=== PATIENT | male | born 1955 ===

== ENCOUNTER 2017-06-20 21:27 | Inpatient (IN) | payer MEDICAID, OTHER ==
[2017-06-20] MEDS ORDERED: Sodium Chloride 0.9% 1,000 ML IV ONE (21:51)
[2017-06-20 22:03] LABS: BASO # 0.2 K/uL (0.0-0.2); BASO % 0.3 % (0.0-2.0); EOS # 0.2 K/uL (0.0-0.7); EOS % 0.2 % (0.0-4.0); HEMATOCRIT 30.7 % (35.0-51.0); LYMPH # 1.1 K/uL (1.0-4.3); LYMPH % 1.2 % (20.0-40.0); MEAN CELL VOLUME 83.9 fL (80.0-94.0); MEAN CORPUSCULAR HEMOGLOBIN 27.3 pg (27.0-31.0); MEAN CORPUSCULAR HGB CONC 32.5 g/dL (33.0-37.0); MEAN PLATELET VOLUME 7.2 fL (7.2-11.7); MONO # 0.5 K/uL (0.0-0.8); MONO % 0.6 % (0.0-10.0); NRBC % 0.1 % (0.0-2.0); PLATELET COUNT 277 K/uL (130-400); RED CELL DISTRIBUTION WIDTH 15.3 % (11.5-14.5)
[2017-06-20 22:05] LABS: CHLORIDE 85 mmol/L (98-107); WHITE BLOOD COUNT 88.8 K/uL (4.8-10.8)
[2017-06-20] MEDS ORDERED: Sodium Chloride 0.9% 1,000 ML ONE (22:05)
[2017-06-20 22:06] LABS: INR 1.2; POTASSIUM 4.9 mmol/L (3.6-5.2)
[2017-06-20 22:07] LABS: SODIUM 120 mmol/L (132-148)
[2017-06-20 22:08] LABS: BILIRUBIN,TOTAL 0.6 mg/dL (0.2-1.3); CARBON DIOXIDE 23 mmol/L (22-30); GFR AFRICAN-AMERICAN > 60
[2017-06-20 22:09] LABS: ALKALINE PHOSPHATASE 202 U/L (38-126); ALT/SGPT 64 U/L (21-72); AST/SGOT 95 U/L (17-59); BLOOD UREA NITROGEN 28 mg/dL (9-20); CALCIUM 9.6 mg/dl (8.6-10.4); GLUCOSE,RANDOM 143 mg/dL (75-110); TOTAL PROTEIN 7.2 g/dL (6.3-8.3)
[2017-06-20 22:31] LABS: TOTAL CELLS COUNTED 100
[2017-06-20 22:33] LABS: METAMYELOCYTE 1 % (0-0); NEUTROPHIL 88 % (50-75)
[2017-06-20] MEDS ORDERED: Iohexol 300 100 ML IJ ONE (22:37)
--- NOTE | 2017-06-20 22:50 | C.PDOC ---
History Of Present Illness 62 year old male with a Hx of widely metastatic left lung CA who presents to the ER with a complaint of chest and body pain. Patient sees Dr. Flip Birmingham at [facility] and had a round of chemotherapy 2 days ago; patient is not sure he got nucagen. Patient's states she has been giving him ms contin and dilaudid 2ml PO at home on a regiment that has not been changed. Patient is not involved with hospice; denies SOB, nausea, or vomiting. Time Seen by Provider: 06/20/17 21:40 Chief Complaint (Nursing): Chest Pain History Per: Patient History/Exam Limitations: no limitations Onset/Duration Of Symptoms: Days Current Symptoms Are (Timing): Still Present Associated Symptoms: denies: Nausea, Dyspnea Modifying Factors: None Exacerbating Factors: None Alleviating Factors: None Recent travel outside of the [place]: No Past Medical History Reviewed: Historical Data, Nursing Documentation, Vital Signs Vital Signs: Last Vital Signs Temp 98.2 F 06/20/17 21:37 Pulse 114 H 06/20/17 21:37 Resp 21 06/20/17 21:37 BP Pulse Ox 95 06/21/17 01:09 - Medical History PMH: No Chronic Diseases Surgical History: No Surg Hx Family History: States: Unknown Family Hx - Social History Hx Alcohol Use: No Hx Substance Use: No - Immunization History Hx Tetanus Toxoid Vaccination: No Hx Influenza Vaccination: No Hx Pneumococcal Vaccination: No Review Of Systems Constitutional: Negative for: Fever, Chills Cardiovascular: Positive for: Chest Pain Respiratory: Negative for: Cough, Shortness of Breath Gastrointestinal: Negative for: Nausea, Vomiting Genitourinary: Negative for: Dysuria, Hematuria Musculoskeletal: Positive for: Other (Body aches) Physical Exam - Physical Exam Appears: Non-toxic, No Acute Distress, Other (Cachetic, bitemporal wasting) Skin: Normal Color, Warm, Dry Head: Atraumatic, Normacephalic Oral Mucosa: Moist Chest: Symmetrical, No Tenderness Cardiovascular: Rhythm Regular, No Friction Rub Respiratory: Other (No breath sounds on left side) Gastrointestinal/Abdominal: Soft, No Tenderness Male Genital: Other (5x5cm firm mass to left inguinal area) Neurological/Psych: Oriented x3, Normal Speech, Normal Cognition ED Course And Treatment - Laboratory Results Result Diagrams: 06/20/17 21:54 06/20/17 21:54 Lab Interpretation: Abnormal (++ leukocytosis, mild anemia, hyponatremia) ECG: Interpreted By Me ECG Rhythm: Sinus Tachycardia ECG Interpretation: Abnormal Rate From EC O2 Sat by Pulse Oximetry: 95 (Room air) Pulse Ox Interpretation: Normal - Radiology CXR: Interpreted by Me CXR Interpretation: Yes: Other (L lung mass, deviated trachea, ? fluid/abscess L chest, small L effusion) - CT Scan/US CT abd/pel Other Rad Studies (CT/US): Read By Radiologist, Radiology Report Reviewed CT/US Interpretation: IMPRESSION: Proximal colonic dilation with distal decompression as discussed above. Transition point in the. sigmoid colon. Extensive heterogeneous soft tissue masses along the right lateral abdomen and pelvis extending. across midline in the inferior anterior pelvis and into the left groin likely representing conglomerate of. partially chronic metastatic lymphadenopathy. Free standing soft tissue neoplasm this would be. possible. Please note no prior studies or reports provided. Metastatic disease to the osseous structures. CT Chest Other Rad Studies (CT/US): Read By Radiologist, Radiology Report Reviewed CT/US Interpretation: IMPRESSION:Extensive soft tissue mass and consolidation in the left hemithorax as described above likely. representing a combination of metastatic and primary neoplasm. Metastatic disease to the osseous structures. Please note no prior studies or reports provided. Progress Note: CT chest/abd/pel, EKG, CXR, and blood culture ordered. Dilaudid and IV fluids administered. Reevaluation Time: 00:55 Reassessment Condition: Improved (pain controlled, resting comfortably.) - Physician Consult Information Outcome Of Conversation: 0030: d/w Medicine Kier Drier- Dr. Jt Ignacio- fl to [facility] Critical Care Time - Critical Care Note Total Time (in mins): 90 Documented critical care: time excludes all time spent performing seperately billable procedures. Medical Decision Making Medical Decision Making: impressive leukocytosis of ? infection vs chemo 2 days ago, vs Neupogen Consolidation in L lung area- Start Zosyn empirically. constip: may be related to colonic stricture/mass/mets. Defer laxatives overnight until d/w Surgery/GI, consider sigmoidoscopy/stent PRN dehydration: continue NS drip Planning for Hospice Care and f/u with Dr. Birmingham @ in [place] when d/c. EXTENSIVE discussion w pt regarding Code Status- tonight's CT results come as a great surprise as CT [address] c/w Stage I/II and further chemo for treatment expected. Pt now advance Stage IV and pt's family not prepared to discuss Code Status- prefer Full Code Overnight. Hospice encouraged. Disposition Doctor Will See Patient In The: Hospital Counseled Patient/Family Regarding: Studies Performed, Diagnosis - Disposition Disposition: HOSPITALIZED Disposition Time: 00:52 Condition: GUARDED Forms: [employer] (Urdu) - Clinical Impression Clinical Impression: Chest discomfort, Pain of metastatic malignancy, Constipation, Dehydration, Pneumonia - Scribe Statement The provider has reviewed the documentation as recorded by the Scribjorge luis Ardon All medical record entries made by the Luzibe were at my direction and personally dictated by me. I have reviewed the chart and agree that the record accurately reflects my personal performance of the history, physical exam, medical decision making, and the department course for this patient. I have also personally directed, reviewed, and agree with the discharge instructions and disposition.
[2017-06-20 23:05] LABS: URINE BILIRUBIN NEGATIVE (NEGATIVE); URINE BLOOD NEGATIVE (NEGATIVE); URINE COLOR Yellow (YELLOW); URINE GLUCOSE (UA) NORMAL (Normal); URINE KETONE NEGATIVE (NEGATIVE); URINE LEUKOCYTE ESTERASE NEG Leu/uL (Negative); URINE PROTEIN NEGATIVE (NEGATIVE); URINE UROBILINOGEN NORMAL mg/dL (0.2-1.0); WBC URINE 1 /hpf (0-5)
[2017-06-21] MEDS ORDERED: Sodium Chloride 0.9% 1,000 ML IV STA (00:31)
[2017-06-21] MEDS ORDERED: Sodium Chloride 0.9% 1,000 ML ONE (00:35)
[2017-06-21] MEDS: Magnesium Citrate Oral SOL (300 ml) PO STA ×2 (01:03→01:35)
[2017-06-21] MEDS ORDERED: Magnesium Citrate Oral SOL (300 ml) ONE (01:04)
--- NOTE | 2017-06-21 01:05 | CT ---
EXAM: CT Abdomen and Pelvis With Intravenous Contrast CLINICAL HISTORY: 62 years old, male; Pain; Abdominal pain; Generalized; Chest pain and chest pressure; Additional info: L lung ca widely mets, ? l groin TECHNIQUE: Axial computed tomography images of the abdomen and pelvis with intravenous contrast. All CT scans at this facility use one or more dose reduction techniques, viz.: automated exposure control; ma/kV adjustment per patient size (including targeted exams where dose is matched to indication; i.e. head); or iterative reconstruction technique. Coronal and sagittal reformatted images were created and reviewed. CONTRAST: 100 mL of omnipaque 300 administered intravenously. COMPARISON: No relevant prior studies available. FINDINGS: Distended gallbladder. The liver, spleen, pancreas are normal. Minimal nonspecific perinephric stranding. The right colon, transverse colon, and proximal descending colon are distended with stool consistent with constipation. The proximal sigmoid colon is distended with air and the distal sigmoid colon is decompressed. The transition occurs in the upper left pelvis on series 6, image 143. There is a small segment of circumferential wall thickening in this region raising the possibility of underlying lesion. Followup colonoscopy may be helpful. The prostate is prominent. Recommend correlation with PSA level. Along the lateral right abdomen and pelvis are numerous rounded soft tissue densities presumably metastatic disease some of which are low attenuation suggesting necrotic center. Lower right pelvis there is a complex soft tissue mass also with areas of low attenuation ending across midline anterior to the urinary bladder and in left groin. Air in the left groin measures 4.5 cm in diameter. A very large conglomerate chronic lymphadenopathy although correlation with patient's history is recommended. There are no prior studies or prior reports provided There are heterogeneous lytic areas within all of the lumbar vertebrae. Heterogeneity in the right acetabulum. Lytic areas in the liliac bones and left inferior pubic rami. IMPRESSION: Proximal colonic dilation with distal decompression as discussed above. Transition point in the sigmoid colon. Extensive heterogeneous soft tissue masses along the right lateral abdomen and pelvis extending across midline in the inferior anterior pelvis and into the left groin likely representing conglomerate of partially chronic metastatic lymphadenopathy. Free standing soft tissue neoplasm this would be possible. Please note no prior studies or reports provided. Metastatic disease to the osseous structures. EXAM: CT Chest With Intravenous Contrast EXAM DATE/TIME: 06/20/2017 9:52 PM CLINICAL HISTORY: 62 years old, male; Pain; Abdominal pain; Generalized; Chest pain and chest pressure; Additional info: L lung ca widely mets, ? l groin TECHNIQUE: Axial computed tomography images of the chest with intravenous contrast. All CT scans at this facility use one or more dose reduction techniques, viz.: automated exposure control; ma/kV adjustment per patient size (including targeted exams where dose is matched to indication; i.e. head); or iterative reconstruction technique. Coronal and sagittal reformatted images were created and reviewed. CONTRAST: 100 mL of omnipaque 300 administered intravenously. COMPARISON: No relevant prior studies available. FINDINGS: There is pleural-based bulky soft tissue along the medial pleura of the left lung and to a lesser degree along the posterior surface. The soft tissue density extends along the pleural covering the left diaphragm. There is consolidation in the left lower lung and lingula. The left hemithorax soft tissue density and consolidation results in mass effect with mediastinal cardiac shift to the right. Small areas of atelectasis in the right lower lung. No aortic aneurysm or dissection. No pulmonary emboli identified although the combination of bolus timing and patient motion thru 2.5 mm slice thickness limit evaluation. There are numerous lytic areas throughout the osseous structures consistent with metastatic disease most notably T1, T5-6, T8. There is decreased height of T1. IMPRESSION: Extensive soft tissue mass and consolidation in the left hemithorax as described above likely representing a combination of metastatic and primary neoplasm. Metastatic disease to the osseous structures. Please note no prior studies or reports provided.
[2017-06-21] MEDS ORDERED: Piperacillin/Tazobact 3.375 gm 100 ML IV STA (01:35)
[2017-06-21] MEDS ORDERED: Piperacillin/Tazobact 3.375 gm 100 ML IVPB ONE (01:41)
[2017-06-21] MEDS: (Novolog) Insulin Aspart, Recombinant 100 u/ml 10 ml vial SC SCH ×4 (07:24→21:15)
[2017-06-21] MEDS ORDERED: Pantoprazole 40 mg EC Tab PO SCH (10:00)
[2017-06-21] MEDS: Enoxaparin 40 mg Syringe SC SCH (10:49)
--- NOTE | 2017-06-21 11:30 | RAD ---
PROCEDURE: CHEST RADIOGRAPH, 1 VIEW HISTORY: SOB COMPARISON: None available. FINDINGS: LUNGS: Diffuse left-sided hazy opacity. Generalized left hemithoracic volume loss. No right-sided infiltrate. PLEURA: Pleural thickening about the lateral left rafy thorax. Probable small left pleural effusion. Probable small left apical pleural thickening. CARDIOVASCULAR: Grossly normal heart size. Evaluation limited due to left-sided volume loss and dextroscoliosis of thoracic spine. OSSEOUS STRUCTURES: No significant abnormalities. VISUALIZED UPPER ABDOMEN: Normal. OTHER FINDINGS: None. IMPRESSION: Hazy left hemithoracic opacity. Possible pleural effusion or pulmonary infiltrate. Mild pleural thickening about lateral left rafy thorax. Probable small left pleural effusion. Left-sided volume loss.
[2017-06-21] MEDS ORDERED: Dextrose 5%/0.9% NS 1,000 ML IV ONE (14:19)
[2017-06-21] MEDS ORDERED: Dextrose 5%/0.9% NS 1,000 ML IV SCH (14:30)
--- NOTE | 2017-06-21 15:59 | CP.PCM.HP ---
Past Patient History - Past Medical History & Family History Past Medical History?: Yes - Past Social History Smoking Status: Unknown If Ever Smoked - PULMONARY Hx Lung Cancer: Yes (left lung CA) - ENDOCRINE/METABOLIC Hx Diabetes Mellitus Type 2: Yes - PSYCHIATRIC Hx Substance Use: No - SURGICAL HISTORY Hx Surgeries: Yes Other/Comment: Left Chest Thoracentesis - ANESTHESIA Hx Anesthesia: Yes Hx Anesthesia Reactions: No Hx Malignant Hyperthermia: No Has any member of the family had a problem w/ anesthesia?: No Meds Allergies/Adverse Reactions: Allergies Allergy/AdvReac Type Severity Reaction Status Date / Time No Known Allergies Allergy Verified 06/20/17 21:43 Physical Exam - Constitutional Appears: Well - Head Exam Head Exam: ATRAUMATIC, NORMAL INSPECTION, NORMOCEPHALIC - Eye Exam Eye Exam: EOMI, Normal appearance, PERRL Pupil Exam: NORMAL ACCOMODATION, PERRL - ENT Exam ENT Exam: Mucous Membranes Moist, Normal Exam - Neck Exam Neck exam: Positive for: Normal Inspection - Respiratory Exam Respiratory Exam: Decreased Breath Sounds - Cardiovascular Exam Cardiovascular Exam: REGULAR RHYTHM, +S1, +S2 - GI/Abdominal Exam GI & Abdominal Exam: Diminished Bowel Sounds, Soft - Rectal Exam Rectal Exam: Deferred Results - Vital Signs Recent Vital Signs: Last Vital Signs Temp 97.6 F 06/21/17 13:27 Pulse 112 H 06/21/17 13:27 Resp 18 06/21/17 13:27 BP 140/82 06/21/17 13:27 Pulse Ox 99 06/21/17 13:27 - Labs Result Diagrams: 06/20/17 21:54 06/20/17 21:54 Labs: Laboratory Results - last 24 hr 06/21/17 06/21/17 07:21 12:11 POC Glucose (mg/dL) 113 H 78
[2017-06-21] MEDS ORDERED: HYDROmorphone 1 mg/ml ISec ONE (16:28)
--- NOTE | 2017-06-21 18:14 | CP.PCM.CON ---
Past Patient History - Past Medical History & Family History Past Medical History?: Yes - Past Social History Smoking Status: Unknown If Ever Smoked - PULMONARY Hx Lung Cancer: Yes (left lung CA) - ENDOCRINE/METABOLIC Hx Diabetes Mellitus Type 2: Yes - PSYCHIATRIC Hx Substance Use: No - SURGICAL HISTORY Hx Surgeries: Yes Other/Comment: Left Chest Thoracentesis - ANESTHESIA Hx Anesthesia: Yes Hx Anesthesia Reactions: No Hx Malignant Hyperthermia: No Has any member of the family had a problem w/ anesthesia?: No Meds Allergies/Adverse Reactions: Allergies Allergy/AdvReac Type Severity Reaction Status Date / Time No Known Allergies Allergy Verified 06/20/17 21:43 - Medications Medications: Current Medications Albuterol/Ipratropium (Duoneb 3 Mg/0.5 Mg (3 Ml) Ud) 3 ml INH RQ6 [facility] Enoxaparin Sodium (Lovenox) 40 mg SC DAILY [facility] Last Admin: 06/21/17 10:49 Dose: Not Given Fentanyl (Duragesic) 1 patch TD Q72H [facility] Last Admin: 06/21/17 15:30 Dose: 1 patch Glyburide (Micronase) 5 mg PO BID [facility] Last Admin: 06/21/17 10:28 Dose: Not Given Hydromorphone HCl (Dilaudid) 3 mg IVP Q4H PRN PRN Reason: Pain, severe (8-10) Last Admin: 06/21/17 16:32 Dose: 3 mg Dextrose/Sodium Chloride (Dextrose 5%/0.9% Ns 1000 Ml) 1,000 mls @ 100 mls/hr IV .Q10H [facility] Last Admin: 06/21/17 14:21 Dose: 100 mls/hr Insulin Aspart (Novolog) 0 unit SC ACHS [facility] PRN Reason: Protocol Last Admin: 06/21/17 16:31 Dose: Not Given Metformin HCl (Glucophage) 500 mg PO BID [facility] Last Admin: 06/21/17 10:28 Dose: Not Given Methylprednisolone (Solu-Medrol) 60 mg IV Q8 [facility] Last Admin: 06/21/17 15:51 Dose: 60 mg Pantoprazole Sodium (Protonix Inj) 40 mg IVP DAILY [facility] Last Admin: 06/21/17 10:48 Dose: 40 mg Results - Vital Signs Recent Vital Signs: Last Vital Signs Temp 98.6 F 06/21/17 17:23 Pulse 113 H 06/21/17 17:23 Resp 22 06/21/17 17:23 BP 157/91 H 06/21/17 17:23 Pulse Ox 97 06/21/17 17:23 - Labs Result Diagrams: 06/20/17 21:54 06/20/17 21:54 Labs: Laboratory Results - last 24 hr 06/21/17 06/21/17 06/21/17 07:21 12:11 16:17 POC Glucose (mg/dL) 113 H 78 169 H
--- NOTE | 2017-06-21 19:34 | CP.PCM.CON ---
History of Present Illness - History of Present Illness History of Present Illness: 62 year old male with a history of stage IV NSCLC (adenocarcinoma) dx in 03/2017 on chemotherapy, admitted with chest pain and fatigue. The patient has been receiving chemotherapy at [facility] and was last treated on 06/18/17. He notes he has been more fatigued and losing more weight. His appetite is poor and has more left sided chest/rib pain. He denies fevers and chills. He does have intermittent shortness of breath. Past medical history: Stage IV NSCLC Past surgical history: None Family history: Denies hematologic and oncologic problems Social history: Denies tobacco, alcohol, and illicit drug use. Allergies: NKA Review of systems: All remaining review of systems including HEENT, cardiovascular, respiratory, gastrointestinal, genitourinary, musculoskeletal, dermatologic, neurologic, and psychiatric are negative unless mentioned in the HPI. Past Patient History - Past Medical History & Family History Past Medical History?: Yes - Past Social History Smoking Status: Former Smoker - PULMONARY Hx Lung Cancer: Yes (left lung CA) - ENDOCRINE/METABOLIC Hx Diabetes Mellitus Type 2: Yes - MUSCULOSKELETAL/RHEUMATOLOGICAL Hx Falls: No - PSYCHIATRIC Hx Substance Use: No - SURGICAL HISTORY Hx Surgeries: Yes Other/Comment: Left Chest Thoracentesis - ANESTHESIA Hx Anesthesia: Yes Hx Anesthesia Reactions: No Hx Malignant Hyperthermia: No Has any member of the family had a problem w/ anesthesia?: No Meds Allergies/Adverse Reactions: Allergies Allergy/AdvReac Type Severity Reaction Status Date / Time No Known Allergies Allergy Verified 06/20/17 21:43 - Medications Medications: Current Medications Albuterol/Ipratropium (Duoneb 3 Mg/0.5 Mg (3 Ml) Ud) 3 ml INH RQ6 [facility] Enoxaparin Sodium (Lovenox) 40 mg SC DAILY [facility] Last Admin: 06/21/17 10:49 Dose: Not Given Fentanyl (Duragesic) 1 patch TD Q72H [facility] Last Admin: 06/21/17 15:30 Dose: 1 patch Glyburide (Micronase) 5 mg PO BID [facility] Last Admin: 06/21/17 18:20 Dose: Not Given Hydromorphone HCl (Dilaudid) 3 mg IVP Q4H PRN PRN Reason: Pain, severe (8-10) Last Admin: 06/21/17 16:32 Dose: 3 mg Dextrose/Sodium Chloride (Dextrose 5%/0.9% Ns 1000 Ml) 1,000 mls @ 100 mls/hr IV .Q10H [facility] Last Admin: 06/21/17 14:21 Dose: 100 mls/hr Insulin Aspart (Novolog) 0 unit SC ACHS [facility] PRN Reason: Protocol Last Admin: 06/21/17 16:31 Dose: Not Given Metformin HCl (Glucophage) 500 mg PO BID [facility] Last Admin: 06/21/17 18:20 Dose: Not Given Methylprednisolone (Solu-Medrol) 60 mg IV Q8 [facility] Last Admin: 06/21/17 15:51 Dose: 60 mg Pantoprazole Sodium (Protonix Inj) 40 mg IVP DAILY [facility] Last Admin: 06/21/17 10:48 Dose: 40 mg Physical Exam - Head Exam Head Exam: ATRAUMATIC - Eye Exam Eye Exam: Normal appearance - ENT Exam ENT Exam: Mucous Membranes Dry - Respiratory Exam Respiratory Exam: Decreased Breath Sounds - Cardiovascular Exam Cardiovascular Exam: +S1, +S2 - GI/Abdominal Exam GI & Abdominal Exam: Normal Bowel Sounds - Extremities Exam Extremities exam: Positive for: normal inspection - Neurological Exam Neurological exam: Oriented x3 - Psychiatric Exam Psychiatric exam: Normal Affect, Normal Mood - Skin Skin Exam: Warm Results - Vital Signs Recent Vital Signs: Last Vital Signs Temp 98.6 F 06/21/17 17:23 Pulse 113 H 06/21/17 17:23 Resp 22 06/21/17 17:23 BP 157/91 H 06/21/17 17:23 Pulse Ox 97 06/21/17 17:23 - Labs Result Diagrams: 06/20/17 21:54 06/20/17 21:54 Labs: Laboratory Results - last 24 hr 06/21/17 06/21/17 06/21/17 07:21 12:11 16:17 POC Glucose (mg/dL) 113 H 78 169 H Assessment & Plan (1) Pain of metastatic malignancy Assessment and Plan: pain medication and bowel regimen Status: Acute (2) Leukocytosis Assessment and Plan: likely secondary to recent Neulasta monitor for fever Status: Acute (3) Anemia Assessment and Plan: chemotherapy and chronic disease Status: Acute (4) Lung cancer Assessment and Plan: lung and bone metastasis outpatient treatment Thank you for this interesting consult. Status: Acute
[2017-06-21] MEDS ORDERED: Albuterol-Ipratrop 3 mg / 0.5 (3 ml) UD INH SCH (20:00)
[2017-06-21] MEDS: Albuterol-Ipratrop 3 mg / 0.5 (3 ml) UD INH SCH (20:30)
[2017-06-21] MEDS: Sodium Chloride 0.9% 1,000 ML IV SCH (21:39)
[2017-06-22] MEDS: Albuterol-Ipratrop 3 mg / 0.5 (3 ml) UD INH SCH ×2 (01:32→07:45)
[2017-06-22] MEDS: Sodium Chloride 0.9% 1,000 ML IV SCH ×2 (07:26→18:07)
[2017-06-22] MEDS: (Novolog) Insulin Aspart, Recombinant 100 u/ml 10 ml vial SC SCH ×4 (08:33→22:08)
[2017-06-22] MEDS: Enoxaparin 40 mg Syringe SC SCH (09:35)
--- NOTE | 2017-06-22 10:52 | CP.PCM.PN ---
Subjective - Date & Time of Evaluation Date of Evaluation: 06/22/17 Time of Evaluation: 08:20 - Subjective Subjective: clinically same Objective - Vital Signs/Intake and Output Vital Signs (last 24 hours): Temp Pulse Resp BP Pulse Ox 98.3 F 112 H 20 141/84 96 06/22/17 08:00 06/22/17 08:00 06/22/17 08:00 06/22/17 08:00 06/22/17 08:00 Intake and Output: 06/22/17 06/22/17 06:59 18:59 Intake Total 2160 Balance 2160 - Medications Medications: Current Medications Enoxaparin Sodium (Lovenox) 40 mg SC DAILY [facility] Last Admin: 06/22/17 09:35 Dose: 40 mg Fentanyl (Duragesic) 1 patch TD Q72H [facility] Last Admin: 06/21/17 15:30 Dose: 1 patch Glyburide (Micronase) 5 mg PO BID [facility] Last Admin: 06/22/17 09:34 Dose: 5 mg Hydromorphone HCl (Dilaudid) 3 mg IVP Q4H PRN PRN Reason: Pain, severe (8-10) Last Admin: 06/22/17 09:30 Dose: 3 mg Sodium Chloride (Sodium Chloride 0.9%) 1,000 mls @ 100 mls/hr IV .Q10H [facility] Last Admin: 06/22/17 07:26 Dose: 100 mls/hr Insulin Aspart (Novolog) 0 unit SC ACHS [facility] PRN Reason: Protocol Last Admin: 06/22/17 08:33 Dose: 2 unit Ipratropium [place] (Atrovent) 0.5 mg IH RQ6 [facility] Metformin HCl (Glucophage) 500 mg PO BID [facility] Last Admin: 06/22/17 09:35 Dose: 500 mg Methylprednisolone (Solu-Medrol) 60 mg IV Q8 [facility] Last Admin: 06/22/17 06:01 Dose: 60 mg Pantoprazole Sodium (Protonix Inj) 40 mg IVP DAILY [facility] Last Admin: 06/22/17 09:35 Dose: 40 mg - Labs Labs: PT 13.4 SECONDS (9.7-12.2) H 06/20/17 21:54 INR 1.2 06/20/17 21:54 APTT 27 SECONDS (21-34) 09/08/17 21:54 - Constitutional Appears: Well - Head Exam Head Exam: ATRAUMATIC, NORMAL INSPECTION, NORMOCEPHALIC - Eye Exam Eye Exam: EOMI, Normal appearance, PERRL Pupil Exam: NORMAL ACCOMODATION, PERRL - ENT Exam ENT Exam: Mucous Membranes Moist, Normal Exam - Neck Exam Neck Exam: Full ROM, Normal Inspection. absent: Lymphadenopathy - Respiratory Exam Respiratory Exam: Decreased Breath Sounds - Cardiovascular Exam Cardiovascular Exam: REGULAR RHYTHM, +S1, +S2 - GI/Abdominal Exam GI & Abdominal Exam: Soft, Diminished Bowel Sounds - Rectal Exam Rectal Exam: Deferred
[2017-06-22] MEDS: Ipratropium 0.02% Inhal Soln (0.5 mg/2.5 ml) UD IH SCH ×2 (14:04→21:04)
--- NOTE | 2017-06-22 15:23 | CP.PCM.PN ---
Subjective - Date & Time of Evaluation Date of Evaluation: 06/22/17 Time of Evaluation: 15:23 Objective - Vital Signs/Intake and Output Vital Signs (last 24 hours): Temp Pulse Resp BP Pulse Ox 98.3 F 112 H 20 141/84 96 06/22/17 08:00 06/22/17 08:00 06/22/17 08:00 06/22/17 08:00 06/22/17 08:00 Intake and Output: 06/22/17 06/22/17 06:59 18:59 Intake Total 2160 1200 Balance 2160 1200 - Medications Medications: Current Medications Enoxaparin Sodium (Lovenox) 40 mg SC DAILY [facility] Last Admin: 06/22/17 09:35 Dose: 40 mg Fentanyl (Duragesic) 1 patch TD Q72H [facility] Last Admin: 06/21/17 15:30 Dose: 1 patch Glyburide (Micronase) 5 mg PO BID [facility] Last Admin: 06/22/17 09:34 Dose: 5 mg Hydromorphone HCl (Dilaudid) 3 mg IVP Q4H PRN PRN Reason: Pain, severe (8-10) Last Admin: 06/22/17 13:59 Dose: 3 mg Sodium Chloride (Sodium Chloride 0.9%) 1,000 mls @ 100 mls/hr IV .Q10H [facility] Last Admin: 06/22/17 07:26 Dose: 100 mls/hr Insulin Aspart (Novolog) 0 unit SC ACHS [facility] PRN Reason: Protocol Last Admin: 06/22/17 12:10 Dose: 4 unit Ipratropium [place] (Atrovent) 0.5 mg IH RQ6 [facility] Last Admin: 06/22/17 14:04 Dose: 0.5 mg Metformin HCl (Glucophage) 500 mg PO BID [facility] Last Admin: 06/22/17 09:35 Dose: 500 mg Methylprednisolone (Solu-Medrol) 60 mg IV Q8 [facility] Last Admin: 06/22/17 13:58 Dose: 60 mg Pantoprazole Sodium (Protonix Inj) 40 mg IVP DAILY [facility] Last Admin: 06/22/17 09:35 Dose: 40 mg - Labs Labs: PT 13.4 SECONDS (9.7-12.2) H 06/20/17 21:54 INR 1.2 06/20/17 21:54 APTT 27 SECONDS (21-34) 06/20/17 21:54
[2017-06-23] MEDS: Ipratropium 0.02% Inhal Soln (0.5 mg/2.5 ml) UD IH SCH ×5 (01:02→20:08)
--- NOTE | 2017-06-23 01:18 | CP.PCM.PN ---
Subjective - Date & Time of Evaluation Date of Evaluation: 06/22/17 Time of Evaluation: 17:00 - Subjective Subjective: Pain improved Objective - Vital Signs/Intake and Output Vital Signs (last 24 hours): Temp Pulse Resp BP Pulse Ox 98.2 F 108 H 20 135/68 97 06/22/17 23:00 06/22/17 23:00 06/22/17 23:00 06/22/17 23:00 06/22/17 23:00 Intake and Output: 06/22/17 06/23/17 18:59 06:59 Intake Total 1200 240 Balance 1200 240 - Medications Medications: Current Medications Enoxaparin Sodium (Lovenox) 40 mg SC DAILY [facility] Last Admin: 06/22/17 09:35 Dose: 40 mg Fentanyl (Duragesic) 1 patch TD Q72H [facility] Last Admin: 06/21/17 15:30 Dose: 1 patch Glyburide (Micronase) 5 mg PO BID [facility] Last Admin: 06/22/17 17:15 Dose: 5 mg Hydromorphone HCl (Dilaudid) 3 mg IVP Q3H PRN PRN Reason: Pain, severe (8-10) Last Admin: 06/22/17 22:01 Dose: 3 mg Sodium Chloride (Sodium Chloride 0.9%) 1,000 mls @ 100 mls/hr IV .Q10H [facility] Last Admin: 06/22/17 18:07 Dose: 100 mls/hr Insulin Aspart (Novolog) 0 unit SC ACHS [facility] PRN Reason: Protocol Last Admin: 06/22/17 22:08 Dose: Not Given Ipratropium [place] (Atrovent) 0.5 mg IH RQ6 [facility] Last Admin: 06/23/17 01:02 Dose: Not Given Metformin HCl (Glucophage) 500 mg PO BID [facility] Last Admin: 06/22/17 17:15 Dose: 500 mg Methylprednisolone (Solu-Medrol) 60 mg IV Q8 [facility] Last Admin: 06/22/17 22:02 Dose: 60 mg Pantoprazole Sodium (Protonix Inj) 40 mg IVP DAILY [facility] Last Admin: 06/22/17 09:35 Dose: 40 mg - Labs Labs: PT 13.4 SECONDS (9.7-12.2) H 06/20/17 21:54 INR 1.2 06/20/17 21:54 APTT 27 SECONDS (21-34) 06/20/17 21:54 - Head Exam Head Exam: ATRAUMATIC - Eye Exam Eye Exam: Normal appearance - ENT Exam ENT Exam: Mucous Membranes Dry - Respiratory Exam Respiratory Exam: Decreased Breath Sounds - Cardiovascular Exam Cardiovascular Exam: +S1, +S2 - GI/Abdominal Exam GI & Abdominal Exam: Normal Bowel Sounds - Extremities Exam Extremities Exam: Normal Inspection Assessment and Plan (1) Pain of metastatic malignancy Assessment & Plan: pain meds and bowel regimen pain improved Status: Acute (2) Leukocytosis Assessment & Plan: likely secondary to recent Neulasta Status: Acute (3) Anemia Assessment & Plan: chronic disease and recent chemotherapy Status: Acute (4) Lung cancer Assessment & Plan: stage IV outpatient treatment Status: Acute
[2017-06-23] MEDS: Sodium Chloride 0.9% 1,000 ML IV SCH ×2 (04:20→14:29)
[2017-06-23 07:19] LABS: BASO # 0.1 K/uL (0.0-0.2); BASO % 0.1 % (0.0-2.0); HEMATOCRIT 26.6 % (35.0-51.0); LYMPH # 0.6 K/uL (1.0-4.3); MEAN CELL VOLUME 84.1 fL (80.0-94.0); MEAN CORPUSCULAR HEMOGLOBIN 27.9 pg (27.0-31.0); MEAN CORPUSCULAR HGB CONC 33.2 g/dL (33.0-37.0); MEAN PLATELET VOLUME 7.6 fL (7.2-11.7); MONO # 0.5 K/uL (0.0-0.8); MONO % 0.8 % (0.0-10.0); RED CELL DISTRIBUTION WIDTH 15.5 % (11.5-14.5)
[2017-06-23 07:29] LABS: PLATELET COUNT 167 K/uL (130-400); WHITE BLOOD COUNT 58.4 K/uL (4.8-10.8)
[2017-06-23 07:48] LABS: CHLORIDE 93 mmol/L (98-107); POTASSIUM 4.2 mmol/L (3.6-5.2); SODIUM 130 mmol/L (132-148)
[2017-06-23 07:50] LABS: ALKALINE PHOSPHATASE 186 U/L (38-126); AST/SGOT 52 U/L (17-59); BILIRUBIN,TOTAL 0.5 mg/dL (0.2-1.3); CARBON DIOXIDE 27 mmol/L (22-30); GFR AFRICAN-AMERICAN > 60; TOTAL PROTEIN 5.7 g/dL (6.3-8.3)
[2017-06-23 07:51] LABS: ALT/SGPT 37 U/L (21-72); BLOOD UREA NITROGEN 14 mg/dL (9-20); CALCIUM 8.6 mg/dl (8.6-10.4); GLUCOSE,RANDOM 186 mg/dL (75-110)
[2017-06-23] MEDS: (Novolog) Insulin Aspart, Recombinant 100 u/ml 10 ml vial SC SCH ×4 (08:17→23:21)
[2017-06-23 08:41] LABS: NEUTROPHIL 98 % (50-75); TOTAL CELLS COUNTED 100
[2017-06-23] MEDS: Enoxaparin 40 mg Syringe SC SCH (09:09)
--- NOTE | 2017-06-23 12:34 | CARD ---
APPROVED REPORT EKG Measurement Heart [id number] <Conclusion> Sinus tachycardia Otherwise normal ECG
--- NOTE | 2017-06-23 13:13 | CP.PCM.CON ---
History of Present Illness - History of Present Illness History of Present Illness: Palliative consult Requested by Allyson Ignacio MD Reason: goals of care discussion Patient is a 62 yo male admitted from home with chest and abdominal pain. Patientmhashly reyes Hx of metastatic Lung CA and is post Chemo Tx last Friday. The CT csan of chest/abd/pelvis was significant for lung mass with mets to bones. Patient and his both aware of results. Patient was medicated at home with MS Contine and Dilaudid PO for cancer pain. On this hospitalization patient was given Fentanyl patch. PMH: Metastatic lung disease, DM, on chemo Tx Soc. Hx: lives at home with and two sons, was working in construction industry and denies smoking fam. Hx: No Hx of cancer. reports patient had genetic testing done and his cancer is not of genetic origin Review of Systems - Constitutional Constitutional: Fatigue, Lethargy, Malaise, Weight Loss, Weakness - EENT Eyes: absent: As Per HPI, Blind Spots, Blurred Vision, Change in Vision, Decreased Night Vision, Diplopia, Discharge, Dry Eye, Exophthalmos, Floaters, Irritation, Itchy Eyes, Loss of Peripheral Vision, Pain, Photophobia, Requires Corrective Lenses, Sees Flashes, Spots in Vision, Tunnel Vision, Other Visual Disturbances, Loss of Vision, Other Ears: absent: As Per HPI, Decreased Hearing, Ear Discharge, Ear Pain, Tinnitus, Abnormal Hearing, Disequilibrium, Dizziness, Other Nose/Mouth/Throat: absent: As Per HPI, Epistaxis, Nasal Congestion, Nasal Discharge, Nasal Obstruction, Nasal Trauma, Nose Pain, Post Nasal Drip, Sinus Pain, Sinus Pressure, Bleeding Gums, Change in Voice, Dental Pain, Dry Mouth, Dysphagia, Halitosis, Hoarsness, Lip Swelling, Mouth Lesions, Mouth Pain, Odynophagia, Sore Throat, Throat Swelling, Tongue Swelling, Facial Pain, Neck Pain, Neck Mass, Other - Cardiovascular Cardiovascular: Chest Pain, Dyspnea, Rapid Heart Rate - Respiratory Respiratory: Cough, Dyspnea, Dyspnea on Exertion, Chest Congestion - Gastrointestinal Gastrointestinal: Bloating, Constipation - Genitourinary Genitourinary: absent: As Per HPI, Change in Urinary Stream, Difficulty Urinating, Dysuria, Flank Pain, Hematuria, Pyuria, Nocturia, Urinary Incontinence, Urinary Frequency, Urinary Hesitance, Urinary Urgency, Voiding Freq/Small Amts, Freq UTI, Hx Renal/Bladder Calculi, Hx /Renal Surgery, Bladder Distension, Other - Reproductive: Male Reproductive:Male: As Per HPI, Prepubesant, Dyspareunia, Genital Lesions, Genital Pruritis, Pelvic Pain, Sexual Dysfunction, Penile Discharge, Genital Odor, Impotence, On ED Medications, Penile Implant, Other - Musculoskeletal Musculoskeletal: absent: As Per HPI, Abnormal Gait, Arthralgias, Atrophy, Back Pain, Deformity, Joint Swelling, Limited Range of Motion, Loss of Height, Muscle Cramps, Muscle Weakness, Myalgias, Neck Pain, Numbness, Radiating Pain into Limb, Stiffness, Tingling, Other - Integumentary Integumentary: absent: As Per HPI, Acne, Alopecia, Bleeding Lesions, Change in Hair, Change in Nails, Change in Pigmentation, Changing Lesions, Dry Skin, Erythema, Furuncle, Hirsutism, Lesions, New Lesions, Non-Healing Lesions, Photosensitivity, Pruritus, Rash, Skin Pain, Skin Ulcer, Sores, Striae, Swelling , Unusual Bruising, Wounds, Jaundice, Other - Neurological Neurological: absent: As Per HPI, Abnormal Gait, Abnormal Hearing, Abnormal Movements, Abnormal Speech, Behavioral Changes, Burning Sensations, Confusion, Convulsions, Disequilibrium, Dizziness, Numbness, Focal Weakness, Frequent Falls , Headaches, Lack of Coordination, Loss of Vision, Memory Loss, Paresthesias, Radicular Pain, Restless Legs, Sensory Deficit, Syncope, Tingling, Tremor, Vertigo, Weakness, Other Visual Disturbances, Other - Psychiatric Psychiatric: absent: As Per HPI, Abnormal Sleep Pattern, Anhedonia, Anxiety, Auditory Hallucinations, Behavioral Changes, Change in Appetite, Change in Libido, Confusion, Depression, Difficulty Concentrating, Hallucinations, Homicidal Ideation, Hopelessness, Irritability, Memory Loss, Mood Swings, Panic Attacks, Paranoia, Suicidal Ideation, Visual Hallucinations, Tactile Hallucinations, Other - Endocrine Endocrine: absent: As Per HPI, Change in Body Appearance, Change in Libido, Cold Intolorance, Deepening of Voice, Excessive Sweating, Fatigue, Flushing, Heat Intolorance, Increase in Ring/Shoe/Hat Size, Palpitations, Polydipsia, Polyphagia, Polyuria, Other - Hematologic/Lymphatic Hematologic: absent: As Per HPI, Easy Bleeding, Easy Bruising, Lymphadenopathy, Other Past Patient History - Past Medical History & Family History Past Medical History?: Yes - Past Social History Smoking Status: Former Smoker - PULMONARY Hx Lung Cancer: Yes (left lung CA) - ENDOCRINE/METABOLIC Hx Diabetes Mellitus Type 2: Yes - MUSCULOSKELETAL/RHEUMATOLOGICAL Hx Falls: No - PSYCHIATRIC Hx Substance Use: No - SURGICAL HISTORY Hx Surgeries: Yes Other/Comment: Left Chest Thoracentesis - ANESTHESIA Hx Anesthesia: Yes Hx Anesthesia Reactions: No Hx Malignant Hyperthermia: No Has any member of the family had a problem w/ anesthesia?: No Meds Allergies/Adverse Reactions: Allergies Allergy/AdvReac Type Severity Reaction Status Date / Time No Known Allergies Allergy Verified 06/20/17 21:43 - Medications Medications: Current Medications Enoxaparin Sodium (Lovenox) 40 mg SC DAILY [facility] Last Admin: 06/23/17 09:09 Dose: 40 mg Fentanyl (Duragesic) 1 patch TD Q72H [facility] Last Admin: 06/21/17 15:30 Dose: 1 patch Glyburide (Micronase) 5 mg PO BID [facility] Last Admin: 06/23/17 09:08 Dose: 5 mg Hydromorphone HCl (Dilaudid) 3 mg IVP Q3H PRN PRN Reason: Pain, severe (8-10) Last Admin: 06/23/17 11:26 Dose: 3 mg Sodium Chloride (Sodium Chloride 0.9%) 1,000 mls @ 100 mls/hr IV .Q10H [facility] Last Admin: 06/23/17 04:20 Dose: 100 mls/hr Insulin Aspart (Novolog) 0 unit SC ACHS [facility] PRN Reason: Protocol Last Admin: 06/23/17 12:28 Dose: 4 unit Ipratropium [place] (Atrovent) 0.5 mg IH RQ6 [facility] Last Admin: 06/23/17 13:05 Dose: 0.5 mg Metformin HCl (Glucophage) 500 mg PO BID [facility] Last Admin: 06/23/17 09:08 Dose: 500 mg Methylprednisolone (Solu-Medrol) 60 mg IV Q8 [facility] Last Admin: 06/23/17 06:04 Dose: 60 mg Pantoprazole Sodium (Protonix Inj) 40 mg IVP DAILY [facility] Last Admin: 06/23/17 09:08 Dose: 40 mg Physical Exam - Constitutional Appears: Chronically Ill - Head Exam Head Exam: ATRAUMATIC, NORMAL INSPECTION, NORMOCEPHALIC - Eye Exam Eye Exam: EOMI, Normal appearance, PERRL Pupil Exam: NORMAL ACCOMODATION, PERRL - ENT Exam ENT Exam: Mucous Membranes Moist, Normal Exam - Neck Exam Neck exam: Positive for: Normal Inspection - Respiratory Exam Respiratory Exam: Decreased Breath Sounds, NORMAL BREATHING PATTERN - Cardiovascular Exam Cardiovascular Exam: Tachycardia, REGULAR RHYTHM - GI/Abdominal Exam GI & Abdominal Exam: Distended, Firm, Hypoactive Bowel Sounds - Rectal Exam Rectal Exam: Deferred - Extremities Exam Extremities exam: Positive for: normal inspection - Back Exam Back exam: NORMAL INSPECTION - Neurological Exam Neurological exam: Alert, Oriented x3 - Psychiatric Exam Psychiatric exam: Flat Affect - Skin Skin Exam: Pallor Results - Vital Signs Recent Vital Signs: Last Vital Signs Temp 97.5 F L 06/23/17 10:12 Pulse 105 H 06/23/17 10:12 Resp 19 06/23/17 10:12 BP 142/90 06/23/17 10:12 Pulse Ox 97 06/23/17 10:12 - Labs Result Diagrams: 06/23/17 07:04 06/23/17 07:04 Labs: Laboratory Results - last 24 hr 06/22/17 06/22/17 06/23/17 16:16 21:03 07:04 WBC 58.4 H* RBC 3.17 L Hgb 8.8 L Hct 26.6 L MCV 84.1 MCH 27.9 MCHC 33.2 RDW 15.5 H Plt Count 167 D MPV 7.6 Neut % (Auto) 98.1 H Lymph % (Auto) 1.0 L Potter % (Auto) 0.8 Eos % (Auto) 0.0 Baso % (Auto) 0.1 Neut # 57.3 H Lymph # 0.6 L Potter # 0.5 Eos # 0.0 Baso # 0.1 Neutrophils % (Manual) 98 H Lymphocytes % (Manual) 1 L Monocytes % (Manual) 1 Platelet Estimate Normal Hypochromasia (manual) Slight Poikilocytosis (manual Slight Anisocytosis (manual) Slight Sodium Potassium Chloride Carbon Dioxide Anion Gap BUN Creatinine Est GFR ( Amer) Est GFR (Non-Af Amer) POC Glucose (mg/dL) 278 H 270 H Random Glucose Calcium Total Bilirubin AST ALT Alkaline Phosphatase Total Protein Albumin Globulin Albumin/Globulin Ratio 06/23/17 06/23/17 06/23/17 07:04 07:31 11:33 WBC RBC Hgb Hct MCV MCH MCHC RDW Plt Count MPV Neut % (Auto) Lymph % (Auto) Potter % (Auto) Eos % (Auto) Baso % (Auto) Neut # Lymph # Potter # Eos # Baso # Neutrophils % (Manual) Lymphocytes % (Manual) Monocytes % (Manual) Platelet Estimate Hypochromasia (manual) Poikilocytosis (manual Anisocytosis (manual) Sodium 130 L Potassium 4.2 Chloride 93 L Carbon Dioxide 27 Anion Gap 14 BUN 14 Creatinine 0.4 L Est GFR ( Amer) > 60 Est GFR (Non-Af Amer) > 60 POC Glucose (mg/dL) 185 H 309 H Random Glucose 186 H Calcium 8.6 Total Bilirubin 0.5 AST 52 ALT 37 Alkaline Phosphatase 186 H Total Protein 5.7 L Albumin 2.8 L D Globulin 2.9 Albumin/Globulin Ratio 1.0 Assessment & Plan - Assessment and Plan (Free Text) Assessment: Palliative consult Code status Full Code, no advance directive on chart I reviewed medical records, all diagnostic studies, examined and interviewed patient at the bed side with his present. Patient is alert, oriented X 3, but still very lethargic falling a sleep often during the discussion. His Francheska answer majority of questions. Physical exam reveals very sick looking man, cachectic, with pale skin. Breath sounds are diminished. There is occasional dry cough. Abdomen is tender to touch , firm and distended. Reports abdominal pain radiating to left flank. Reports no BM X 3 days. Complains of pain around chest area and upper abdomen. On admission WBC 58.4, Hb 8.8 and low Na 130. patient is tachycardic and afebrile. BP WNL. Goals of care discussed with Francheska at bed side. She reports patient was at his norm until March/2017 when he checked him self in for dry cough lasting since September of last year. Patient was working until . Since March, patient underwent multiple Chemo Tx without good response. The notices huge decline in patient's condition. She admits to distress of 9/10 , due to whole situation. She is concerned about her poor prognosis, her kids , her financial situation and is in anticipatory grieving. I reviewed patient's clinical presentation with the and elicited her concerns regarding poor prognosis. She stated that patient and his oncologist agreed to the new Immune Tx treatment once patient gets stronger. At the same time had a questions about Hospice care. I corrected her knowledge about Hospice care vs continuing Chemo tx and offered information on DNR status as something to think about given the lung Cancer diagnosis. is concerned that she would not be able to provide all care her needs at home. SIM discussed . She agreed. Impression * Chronically ill man with widely metastasized cancer * Body image disturbance * General weakness * Cancer pain * Family distress and anticipatory grieving Suggestion * Symptoms management * Would consider transfer to [facility] * Bowel regimen * Greek Professor visits for spiritual support Goals of care will need to be revised based on patient's progress/ decline. Thank you for allowing me to assist you in care of this patient.
--- NOTE | 2017-06-23 17:51 | CP.PCM.PN ---
Subjective - Date & Time of Evaluation Date of Evaluation: 06/23/17 Time of Evaluation: 17:51 Objective - Vital Signs/Intake and Output Vital Signs (last 24 hours): Temp Pulse Resp BP Pulse Ox 98.0 F 111 H 20 146/89 94 L 06/23/17 15:10 06/23/17 15:10 06/23/17 15:10 06/23/17 15:10 06/23/17 15:10 Intake and Output: 06/23/17 06/23/17 06:59 18:59 Intake Total 1040 1200 Output Total 1 Balance 1040 1199 - Medications Medications: Current Medications Enoxaparin Sodium (Lovenox) 40 mg SC DAILY [facility] Last Admin: 06/23/17 09:09 Dose: 40 mg Fentanyl (Duragesic) 1 patch TD Q72H [facility] Last Admin: 06/21/17 15:30 Dose: 1 patch Glyburide (Micronase) 5 mg PO BID [facility] Last Admin: 06/23/17 17:33 Dose: 5 mg Hydromorphone HCl (Dilaudid) 3 mg IVP Q3H PRN PRN Reason: Pain, severe (8-10) Last Admin: 06/23/17 17:28 Dose: 3 mg Sodium Chloride (Sodium Chloride 0.9%) 1,000 mls @ 100 mls/hr IV .Q10H [facility] Last Admin: 06/23/17 14:29 Dose: 100 mls/hr Insulin Aspart (Novolog) 0 unit SC ACHS [facility] PRN Reason: Protocol Last Admin: 06/23/17 17:35 Dose: 1 unit Ipratropium [place] (Atrovent) 0.5 mg IH RQ6 [facility] Last Admin: 06/23/17 13:05 Dose: 0.5 mg Metformin HCl (Glucophage) 500 mg PO BID [facility] Last Admin: 06/23/17 17:34 Dose: 500 mg Methylprednisolone (Solu-Medrol) 60 mg IV Q8 [facility] Last Admin: 06/23/17 14:28 Dose: 60 mg Pantoprazole Sodium (Protonix Inj) 40 mg IVP DAILY [facility] Last Admin: 06/23/17 09:08 Dose: 40 mg - Labs Labs: 06/23/17 07:04 06/23/17 07:04 PT 13.4 SECONDS (9.7-12.2) H 06/20/17 21:54 INR 1.2 06/20/17 21:54 APTT 27 SECONDS (21-34) 06/20/17 21:54
[2017-06-23] MEDS ORDERED: HYDROmorphone 1 mg/ml ISec IVP STA (19:38)
--- NOTE | 2017-06-23 21:27 | CP.PCM.PN ---
Subjective - Date & Time of Evaluation Date of Evaluation: 06/23/17 Time of Evaluation: 09:20 - Subjective Subjective: clinically same Objective - Vital Signs/Intake and Output Vital Signs (last 24 hours): Temp Pulse Resp BP Pulse Ox 98.0 F 111 H 20 146/89 94 L 06/23/17 15:10 06/23/17 15:10 06/23/17 15:10 06/23/17 15:10 06/23/17 15:10 Intake and Output: 06/23/17 06/24/17 18:59 06:59 Intake Total 1200 Output Total 1 Balance 1199 - Medications Medications: Current Medications Enoxaparin Sodium (Lovenox) 40 mg SC DAILY [facility] Last Admin: 06/23/17 09:09 Dose: 40 mg Fentanyl (Duragesic) 1 patch TD Q72H [facility] Last Admin: 06/21/17 15:30 Dose: 1 patch Glyburide (Micronase) 5 mg PO BID [facility] Last Admin: 06/23/17 17:33 Dose: 5 mg Hydromorphone HCl (Dilaudid) 3 mg IVP Q3H PRN PRN Reason: Pain, severe (8-10) Last Admin: 06/23/17 17:28 Dose: 3 mg Sodium Chloride (Sodium Chloride 0.9%) 1,000 mls @ 100 mls/hr IV .Q10H [facility] Last Admin: 06/23/17 14:29 Dose: 100 mls/hr Insulin Aspart (Novolog) 0 unit SC ACHS [facility] PRN Reason: Protocol Last Admin: 06/23/17 17:35 Dose: 1 unit Ipratropium [place] (Atrovent) 0.5 mg IH RQ6 [facility] Last Admin: 06/23/17 20:08 Dose: 0.5 mg Metformin HCl (Glucophage) 500 mg PO BID [facility] Last Admin: 06/23/17 17:34 Dose: 500 mg Methylprednisolone (Solu-Medrol) 60 mg IV Q8 [facility] Last Admin: 06/23/17 14:28 Dose: 60 mg Pantoprazole Sodium (Protonix Inj) 40 mg IVP DAILY [facility] Last Admin: 06/23/17 09:08 Dose: 40 mg - Labs Labs: 06/23/17 07:04 06/23/17 07:04 PT 13.4 SECONDS (9.7-12.2) H 06/20/17 21:54 INR 1.2 06/20/17 21:54 APTT 27 SECONDS (21-34) 06/20/17 21:54 - Constitutional Appears: Well - Head Exam Head Exam: ATRAUMATIC, NORMAL INSPECTION, NORMOCEPHALIC - Eye Exam Eye Exam: EOMI, Normal appearance, PERRL Pupil Exam: NORMAL ACCOMODATION, PERRL - ENT Exam ENT Exam: Mucous Membranes Moist, Normal Exam - Neck Exam Neck Exam: Full ROM, Normal Inspection. absent: Lymphadenopathy - Respiratory Exam Respiratory Exam: Decreased Breath Sounds - Cardiovascular Exam Cardiovascular Exam: REGULAR RHYTHM, +S1, +S2 - GI/Abdominal Exam GI & Abdominal Exam: Soft, Diminished Bowel Sounds - Rectal Exam Rectal Exam: Deferred Assessment and Plan - Assessment and Plan (Free Text) Plan: I discussed with the family WBC count went down to 5 8 from 88 follow-up with pulmonary Follow-up with Dr. Frost Continue same Begin a lot of pain medications dionna same poor prognosis
[2017-06-24] MEDS: Sodium Chloride 0.9% 1,000 ML IV SCH ×3 (00:20→19:30)
[2017-06-24] MEDS: Ipratropium 0.02% Inhal Soln (0.5 mg/2.5 ml) UD IH SCH ×4 (01:19→21:24)
[2017-06-24] MEDS: (Novolog) Insulin Aspart, Recombinant 100 u/ml 10 ml vial SC SCH ×4 (08:16→21:34)
[2017-06-24] MEDS: Enoxaparin 40 mg Syringe SC SCH (09:18)
--- NOTE | 2017-06-24 16:36 | CP.PCM.PN ---
Subjective - Date & Time of Evaluation Date of Evaluation: 06/24/17 Time of Evaluation: 16:35 Objective - Vital Signs/Intake and Output Vital Signs (last 24 hours): Temp Pulse Resp BP Pulse Ox 97.5 F L 106 H 20 162/98 H 94 L 06/24/17 07:36 06/24/17 14:43 06/24/17 07:36 06/24/17 07:36 06/24/17 14:43 Intake and Output: 06/24/17 06/24/17 06:59 18:59 Intake Total 1999 1300 Balance 1999 1300 - Medications Medications: Current Medications Enoxaparin Sodium (Lovenox) 40 mg SC DAILY [facility] Last Admin: 06/24/17 09:18 Dose: 40 mg Fentanyl (Duragesic) 1 patch TD Q72H [facility] Last Admin: 06/24/17 14:50 Dose: 1 patch Glyburide (Micronase) 5 mg PO BID [facility] Last Admin: 06/24/17 09:19 Dose: 5 mg Hydromorphone HCl (Dilaudid) 3 mg IVP Q3H PRN PRN Reason: Pain, severe (8-10) Last Admin: 06/24/17 13:36 Dose: 3 mg Sodium Chloride (Sodium Chloride 0.9%) 1,000 mls @ 100 mls/hr IV .Q10H [facility] Last Admin: 06/24/17 10:29 Dose: 100 mls/hr Insulin Aspart (Novolog) 0 unit SC ACHS [facility] PRN Reason: Protocol Last Admin: 06/24/17 11:45 Dose: 3 unit Ipratropium [place] (Atrovent) 0.5 mg IH RQ6 [facility] Last Admin: 06/24/17 13:31 Dose: 0.5 mg Metformin HCl (Glucophage) 500 mg PO BID [facility] Last Admin: 06/24/17 09:19 Dose: 500 mg Methylprednisolone (Solu-Medrol) 60 mg IV Q8 [facility] Last Admin: 06/24/17 14:54 Dose: 60 mg Pantoprazole Sodium (Protonix Inj) 40 mg IVP DAILY [facility] Last Admin: 06/24/17 09:17 Dose: 40 mg - Labs Labs: 06/23/17 07:04 06/23/17 07:04 PT 13.4 SECONDS (9.7-12.2) H 09/08/17 21:54 INR 1.2 06/20/17 21:54 APTT 27 SECONDS (21-34) 06/20/17 21:54
--- NOTE | 2017-06-24 20:34 | CP.PCM.PN ---
Subjective - Date & Time of Evaluation Date of Evaluation: 06/24/17 Time of Evaluation: 08:40 - Subjective Subjective: clinically same Objective - Vital Signs/Intake and Output Vital Signs (last 24 hours): Temp Pulse Resp BP Pulse Ox 98.1 F 124 H 16 156/89 H 95 06/24/17 16:00 06/24/17 16:00 06/24/17 16:00 06/24/17 16:00 06/24/17 16:00 Intake and Output: 06/24/17 06/25/17 18:59 06:59 Intake Total 1300 Balance 1300 - Medications Medications: Current Medications Enoxaparin Sodium (Lovenox) 40 mg SC DAILY [facility] Last Admin: 06/24/17 09:18 Dose: 40 mg Fentanyl (Duragesic) 1 patch TD Q72H [facility] Last Admin: 06/24/17 14:50 Dose: 1 patch Glyburide (Micronase) 5 mg PO BID [facility] Last Admin: 06/24/17 17:00 Dose: 5 mg Hydromorphone HCl (Dilaudid) 3 mg IVP Q3H PRN PRN Reason: Pain, severe (8-10) Last Admin: 06/24/17 16:58 Dose: 3 mg Sodium Chloride (Sodium Chloride 0.9%) 1,000 mls @ 100 mls/hr IV .Q10H [facility] Last Admin: 06/24/17 10:29 Dose: 100 mls/hr Insulin Aspart (Novolog) 0 unit SC ACHS [facility] PRN Reason: Protocol Last Admin: 06/24/17 17:00 Dose: 1 unit Ipratropium [place] (Atrovent) 0.5 mg IH RQ6 [facility] Last Admin: 06/24/17 13:31 Dose: 0.5 mg Metformin HCl (Glucophage) 500 mg PO BID [facility] Last Admin: 06/24/17 17:00 Dose: 500 mg Methylprednisolone (Solu-Medrol) 60 mg IV Q8 [facility] Last Admin: 06/24/17 14:54 Dose: 60 mg Pantoprazole Sodium (Protonix Inj) 40 mg IVP DAILY [facility] Last Admin: 06/24/17 09:17 Dose: 40 mg - Labs Labs: 06/23/17 07:04 06/23/17 07:04 PT 13.4 SECONDS (9.7-12.2) H 06/20/17 21:54 INR 1.2 06/20/17 21:54 APTT 27 SECONDS (21-34) 06/20/17 21:54 - Constitutional Appears: Well - Head Exam Head Exam: ATRAUMATIC, NORMAL INSPECTION, NORMOCEPHALIC - Eye Exam Eye Exam: EOMI, Normal appearance, PERRL Pupil Exam: NORMAL ACCOMODATION, PERRL - ENT Exam ENT Exam: Mucous Membranes Moist, Normal Exam - Neck Exam Neck Exam: Full ROM, Normal Inspection. absent: Lymphadenopathy - Respiratory Exam Respiratory Exam: Decreased Breath Sounds - Cardiovascular Exam Cardiovascular Exam: REGULAR RHYTHM, +S1, +S2 - GI/Abdominal Exam GI & Abdominal Exam: Soft, Diminished Bowel Sounds - Rectal Exam Rectal Exam: Deferred
[2017-06-25] MEDS: Ipratropium 0.02% Inhal Soln (0.5 mg/2.5 ml) UD IH SCH ×4 (03:52→19:24)
[2017-06-25] MEDS: (Novolog) Insulin Aspart, Recombinant 100 u/ml 10 ml vial SC SCH ×4 (08:00→21:38)
[2017-06-25] MEDS: Enoxaparin 40 mg Syringe SC SCH (09:04)
--- NOTE | 2017-06-25 10:30 | CP.PCM.PN ---
Subjective - Date & Time of Evaluation Date of Evaluation: 06/23/17 Time of Evaluation: 18:00 - Subjective Subjective: Has some pain but controlled with pain meds. Objective - Vital Signs/Intake and Output Vital Signs (last 24 hours): Temp Pulse Resp BP Pulse Ox 97.8 F 124 H 21 158/98 H 95 06/25/17 07:27 06/25/17 07:27 06/25/17 07:27 06/25/17 07:27 06/25/17 07:27 Intake and Output: 06/25/17 06/25/17 06:59 18:59 Intake Total 1160 Balance 1160 - Medications Medications: Current Medications Enoxaparin Sodium (Lovenox) 40 mg SC DAILY [facility] Last Admin: 06/25/17 09:04 Dose: 40 mg Fentanyl (Duragesic) 1 patch TD Q72H [facility] Last Admin: 06/24/17 14:50 Dose: 1 patch Glyburide (Micronase) 5 mg PO BID [facility] Last Admin: 06/25/17 09:04 Dose: 5 mg Hydromorphone HCl (Dilaudid) 3 mg IVP Q3H PRN PRN Reason: Pain, severe (8-10) Last Admin: 06/25/17 06:25 Dose: 3 mg Insulin Aspart (Novolog) 0 unit SC ACHS [facility] PRN Reason: Protocol Last Admin: 06/25/17 08:00 Dose: 2 unit Ipratropium [place] (Atrovent) 0.5 mg IH RQ6 [facility] Last Admin: 06/25/17 08:01 Dose: 0.5 mg Metformin HCl (Glucophage) 500 mg PO BID [facility] Last Admin: 06/25/17 09:04 Dose: 500 mg Methylprednisolone (Solu-Medrol) 60 mg IV Q8 [facility] Last Admin: 06/25/17 06:15 Dose: 60 mg Pantoprazole Sodium (Protonix Inj) 40 mg IVP DAILY [facility] Last Admin: 06/25/17 09:04 Dose: 40 mg - Labs Labs: 06/23/17 07:04 06/23/17 07:04 PT 13.4 SECONDS (9.7-12.2) H 06/20/17 21:54 INR 1.2 06/20/17 21:54 APTT 27 SECONDS (21-34) 06/20/17 21:54 - Head Exam Head Exam: ATRAUMATIC - Eye Exam Eye Exam: Normal appearance - ENT Exam ENT Exam: Mucous Membranes Dry - Respiratory Exam Respiratory Exam: NORMAL BREATHING PATTERN - Cardiovascular Exam Cardiovascular Exam: +S1, +S2 - GI/Abdominal Exam GI & Abdominal Exam: Normal Bowel Sounds - Extremities Exam Extremities Exam: Normal Inspection Assessment and Plan (1) Pain of metastatic malignancy Assessment & Plan: pain meds with bowel regimen Status: Acute (2) Leukocytosis Assessment & Plan: secondary to recent Neulasta Status: Acute (3) Anemia Assessment & Plan: chronic disease and chemotherapy Status: Acute (4) Lung cancer Assessment & Plan: stage IV on chemotherapy with likely progression pt wants to try immunotherapy as outpatient. Status: Acute
--- NOTE | 2017-06-25 12:05 | CP.PCM.PN ---
Subjective - Date & Time of Evaluation Date of Evaluation: 06/24/17 Time of Evaluation: 14:00 - Subjective Subjective: Has pain Objective - Vital Signs/Intake and Output Vital Signs (last 24 hours): Temp Pulse Resp BP Pulse Ox 97.8 F 124 H 21 158/98 H 95 06/25/17 07:27 06/25/17 07:27 06/25/17 07:27 06/25/17 07:27 06/25/17 07:27 Intake and Output: 06/25/17 06/25/17 06:59 18:59 Intake Total 1160 Balance 1160 - Medications Medications: Current Medications Enoxaparin Sodium (Lovenox) 40 mg SC DAILY [facility] Last Admin: 06/25/17 09:04 Dose: 40 mg Fentanyl (Duragesic) 1 patch TD Q72H [facility] Last Admin: 06/24/17 14:50 Dose: 1 patch Glyburide (Micronase) 5 mg PO BID [facility] Last Admin: 06/25/17 09:04 Dose: 5 mg Hydromorphone HCl (Dilaudid) 3 mg IVP Q3H PRN PRN Reason: Pain, severe (8-10) Last Admin: 06/25/17 09:30 Dose: 3 mg Insulin Aspart (Novolog) 0 unit SC ACHS [facility] PRN Reason: Protocol Last Admin: 06/25/17 08:00 Dose: 2 unit Ipratropium [place] (Atrovent) 0.5 mg IH RQ6 [facility] Last Admin: 06/25/17 08:01 Dose: 0.5 mg Metformin HCl (Glucophage) 500 mg PO BID [facility] Last Admin: 06/25/17 09:04 Dose: 500 mg Methylprednisolone (Solu-Medrol) 60 mg IV Q8 [facility] Last Admin: 06/25/17 06:15 Dose: 60 mg Pantoprazole Sodium (Protonix Inj) 40 mg IVP DAILY [facility] Last Admin: 06/25/17 09:04 Dose: 40 mg - Labs Labs: 06/23/17 07:04 06/23/17 07:04 PT 13.4 SECONDS (9.7-12.2) H 06/20/17 21:54 INR 1.2 06/20/17 21:54 APTT 27 SECONDS (21-34) 06/20/17 21:54 - Head Exam Head Exam: ATRAUMATIC - Eye Exam Eye Exam: Normal appearance - ENT Exam ENT Exam: Mucous Membranes Dry - Respiratory Exam Respiratory Exam: Decreased Breath Sounds - Cardiovascular Exam Cardiovascular Exam: +S1, +S2 - GI/Abdominal Exam GI & Abdominal Exam: Normal Bowel Sounds - Extremities Exam Extremities Exam: Normal Inspection Assessment and Plan (1) Pain of metastatic malignancy Assessment & Plan: narcotic pain meds with bowel regimen Status: Acute (2) Leukocytosis Assessment & Plan: secondary to recent Neulasta Status: Acute (3) Anemia Assessment & Plan: chronic disease and recent chemotherapy Status: Acute (4) Lung cancer Assessment & Plan: s/p 3 cycles of chemotherapy with progression for outpatient immunotherapy Status: Acute
--- NOTE | 2017-06-25 12:06 | CP.PCM.PN ---
Subjective - Date & Time of Evaluation Date of Evaluation: 06/24/17 Time of Evaluation: 19:00 - Subjective Subjective: Has chest pain Objective - Vital Signs/Intake and Output Vital Signs (last 24 hours): Temp Pulse Resp BP Pulse Ox 97.8 F 124 H 21 158/98 H 95 06/25/17 07:27 06/25/17 07:27 06/25/17 07:27 06/25/17 07:27 06/25/17 07:27 Intake and Output: 06/25/17 06/25/17 06:59 18:59 Intake Total 1160 Balance 1160 - Medications Medications: Current Medications Enoxaparin Sodium (Lovenox) 40 mg SC DAILY [facility] Last Admin: 06/25/17 09:04 Dose: 40 mg Fentanyl (Duragesic) 1 patch TD Q72H [facility] Last Admin: 06/24/17 14:50 Dose: 1 patch Glyburide (Micronase) 5 mg PO BID [facility] Last Admin: 06/25/17 09:04 Dose: 5 mg Hydromorphone HCl (Dilaudid) 3 mg IVP Q3H PRN PRN Reason: Pain, severe (8-10) Last Admin: 06/25/17 09:30 Dose: 3 mg Insulin Aspart (Novolog) 0 unit SC ACHS [facility] PRN Reason: Protocol Last Admin: 06/25/17 08:00 Dose: 2 unit Ipratropium [place] (Atrovent) 0.5 mg IH RQ6 [facility] Last Admin: 06/25/17 08:01 Dose: 0.5 mg Metformin HCl (Glucophage) 500 mg PO BID [facility] Last Admin: 06/25/17 09:04 Dose: 500 mg Methylprednisolone (Solu-Medrol) 60 mg IV Q8 [facility] Last Admin: 06/25/17 06:15 Dose: 60 mg Pantoprazole Sodium (Protonix Inj) 40 mg IVP DAILY [facility] Last Admin: 06/25/17 09:04 Dose: 40 mg - Labs Labs: 06/23/17 07:04 06/23/17 07:04 PT 13.4 SECONDS (9.7-12.2) H 06/20/17 21:54 INR 1.2 06/20/17 21:54 APTT 27 SECONDS (21-34) 06/20/17 21:54 - Head Exam Head Exam: ATRAUMATIC - Eye Exam Eye Exam: Normal appearance - ENT Exam ENT Exam: Mucous Membranes Dry - Respiratory Exam Respiratory Exam: Decreased Breath Sounds - Cardiovascular Exam Cardiovascular Exam: +S1, +S2 - GI/Abdominal Exam GI & Abdominal Exam: Normal Bowel Sounds Assessment and Plan (1) Pain of metastatic malignancy Assessment & Plan: narcotic pain meds and bowel regimen Status: Acute (2) Leukocytosis Assessment & Plan: secondary to recent Neulasta Status: Acute (3) Anemia Assessment & Plan: chronic disease and recent chemotherapy Status: Acute (4) Lung cancer Assessment & Plan: outpatient treatment Status: Acute
--- NOTE | 2017-06-25 18:49 | CP.PCM.PN ---
Subjective - Date & Time of Evaluation Date of Evaluation: 06/25/17 Time of Evaluation: 08:20 - Subjective Subjective: clinically same Objective - Vital Signs/Intake and Output Vital Signs (last 24 hours): Temp Pulse Resp BP Pulse Ox 97.8 F 124 H 21 158/98 H 93 L 06/25/17 07:27 06/25/17 15:15 06/25/17 07:27 06/25/17 15:15 06/25/17 15:15 Intake and Output: 06/25/17 06/25/17 06:59 18:59 Intake Total 1160 1200 Balance 1160 1200 - Medications Medications: Current Medications Enoxaparin Sodium (Lovenox) 40 mg SC DAILY [facility] Last Admin: 06/25/17 09:04 Dose: 40 mg Glyburide (Micronase) 5 mg PO BID [facility] Last Admin: 06/25/17 18:19 Dose: 5 mg Hydromorphone HCl (Dilaudid) 4 mg IVP Q3H PRN PRN Reason: Pain, severe (8-10) Last Admin: 06/25/17 15:07 Dose: 4 mg Insulin Aspart (Novolog) 0 unit SC ACHS [facility] PRN Reason: Protocol Last Admin: 06/25/17 18:19 Dose: 2 unit Ipratropium [place] (Atrovent) 0.5 mg IH RQ6 [facility] Last Admin: 06/25/17 13:41 Dose: 0.5 mg Metformin HCl (Glucophage) 500 mg PO BID [facility] Last Admin: 06/25/17 18:19 Dose: 500 mg Methylprednisolone (Solu-Medrol) 60 mg IV Q8 [facility] Last Admin: 06/25/17 13:21 Dose: 60 mg Pantoprazole Sodium (Protonix Inj) 40 mg IVP DAILY [facility] Last Admin: 06/25/17 09:04 Dose: 40 mg - Labs Labs: 06/23/17 07:04 06/23/17 07:04 PT 13.4 SECONDS (9.7-12.2) H 06/20/17 21:54 INR 1.2 06/20/17 21:54 APTT 27 SECONDS (21-34) 06/20/17 21:54 - Constitutional Appears: Well - Head Exam Head Exam: ATRAUMATIC, NORMAL INSPECTION, NORMOCEPHALIC - Eye Exam Eye Exam: EOMI, Normal appearance, PERRL Pupil Exam: NORMAL ACCOMODATION, PERRL - ENT Exam ENT Exam: Mucous Membranes Moist, Normal Exam - Neck Exam Neck Exam: Full ROM, Normal Inspection. absent: Lymphadenopathy - Respiratory Exam Respiratory Exam: Decreased Breath Sounds - Cardiovascular Exam Cardiovascular Exam: REGULAR RHYTHM, +S1, +S2 - GI/Abdominal Exam GI & Abdominal Exam: Soft, Diminished Bowel Sounds - Rectal Exam Rectal Exam: Deferred
--- NOTE | 2017-06-25 19:42 | CP.PCM.PN ---
Subjective - Date & Time of Evaluation Date of Evaluation: 06/25/17 Objective - Vital Signs/Intake and Output Vital Signs (last 24 hours): Temp Pulse Resp BP Pulse Ox 97.8 F 124 H 21 158/98 H 93 L 06/25/17 07:27 06/25/17 15:15 06/25/17 07:27 06/25/17 15:15 06/25/17 15:15 Intake and Output: 06/25/17 06/26/17 18:59 06:59 Intake Total 1200 Balance 1200 - Medications Medications: Current Medications Enoxaparin Sodium (Lovenox) 40 mg SC DAILY [facility] Last Admin: 06/25/17 09:04 Dose: 40 mg Glyburide (Micronase) 5 mg PO BID [facility] Last Admin: 06/25/17 18:19 Dose: 5 mg Hydromorphone HCl (Dilaudid) 4 mg IVP Q3H PRN PRN Reason: Pain, severe (8-10) Last Admin: 06/25/17 15:07 Dose: 4 mg Insulin Aspart (Novolog) 0 unit SC ACHS [facility] PRN Reason: Protocol Last Admin: 06/25/17 18:19 Dose: 2 unit Ipratropium [place] (Atrovent) 0.5 mg IH RQ6 [facility] Last Admin: 06/25/17 19:24 Dose: 0.5 mg Metformin HCl (Glucophage) 500 mg PO BID [facility] Last Admin: 06/25/17 18:19 Dose: 500 mg Methylprednisolone (Solu-Medrol) 60 mg IV Q8 [facility] Last Admin: 06/25/17 13:21 Dose: 60 mg Pantoprazole Sodium (Protonix Inj) 40 mg IVP DAILY [facility] Last Admin: 06/25/17 09:04 Dose: 40 mg - Labs Labs: 06/23/17 07:04 06/23/17 07:04 PT 13.4 SECONDS (9.7-12.2) H 06/20/17 21:54 INR 1.2 06/20/17 21:54 APTT 27 SECONDS (21-34) 06/20/17 21:54
[2017-06-26] MEDS: Ipratropium 0.02% Inhal Soln (0.5 mg/2.5 ml) UD IH SCH ×4 (01:40→19:41)
[2017-06-26 07:14] LABS: BASO # 0.1 K/uL (0.0-0.2); BASO % 0.3 % (0.0-2.0); EOS % 0.1 % (0.0-4.0); HEMATOCRIT 27.4 % (35.0-51.0); LYMPH # 0.5 K/uL (1.0-4.3); LYMPH % 1.7 % (20.0-40.0); MEAN CELL VOLUME 83.4 fL (80.0-94.0); MEAN CORPUSCULAR HEMOGLOBIN 28.1 pg (27.0-31.0); MEAN CORPUSCULAR HGB CONC 33.6 g/dL (33.0-37.0); MEAN PLATELET VOLUME 8.3 fL (7.2-11.7); MONO % 6.2 % (0.0-10.0); RED CELL DISTRIBUTION WIDTH 15.3 % (11.5-14.5)
[2017-06-26 07:25] LABS: PLATELET COUNT 66 K/uL (130-400)
[2017-06-26 07:31] LABS: ALKALINE PHOSPHATASE 174 U/L (38-126); ALT/SGPT 40 U/L (21-72); AST/SGOT 49 U/L (17-59); BILIRUBIN,TOTAL 0.8 mg/dL (0.2-1.3); BLOOD UREA NITROGEN 11 mg/dL (9-20); CALCIUM 8.6 mg/dl (8.6-10.4); CARBON DIOXIDE 28 mmol/L (22-30); CHLORIDE 82 mmol/L (98-107); GFR AFRICAN-AMERICAN > 60; GLUCOSE,RANDOM 172 mg/dL (75-110); SODIUM 121 mmol/L (132-148); TOTAL PROTEIN 5.8 g/dL (6.3-8.3)
[2017-06-26] MEDS: (Novolog) Insulin Aspart, Recombinant 100 u/ml 10 ml vial SC SCH ×4 (08:09→21:47)
[2017-06-26 09:02] LABS: NEUTROPHIL 92 % (50-75); TOTAL CELLS COUNTED 100
[2017-06-26] MEDS: Enoxaparin 40 mg Syringe SC SCH (09:11)
--- NOTE | 2017-06-26 19:27 | CP.PCM.PN ---
Subjective - Date & Time of Evaluation Date of Evaluation: 06/26/17 Time of Evaluation: 19:27 Objective - Vital Signs/Intake and Output Vital Signs (last 24 hours): Temp Pulse Resp BP Pulse Ox 98.6 F 124 H 20 154/93 H 96 06/26/17 07:22 06/26/17 07:22 06/26/17 07:22 06/26/17 07:22 06/26/17 07:22 Intake and Output: 06/26/17 06/27/17 18:59 06:59 Intake Total 350 Balance 350 - Medications Medications: Current Medications Enoxaparin Sodium (Lovenox) 40 mg SC DAILY [facility] Last Admin: 06/26/17 09:11 Dose: 40 mg Fentanyl (Duragesic) 1 patch TD Q72H [place] Glyburide (Micronase) 5 mg PO BID [facility] Last Admin: 06/26/17 17:51 Dose: 5 mg Hydromorphone HCl (Dilaudid) 4 mg IVP Q3H PRN PRN Reason: Pain, severe (8-10) Last Admin: 06/26/17 17:51 Dose: 4 mg Insulin Aspart (Novolog) 0 unit SC ACHS [facility] PRN Reason: Protocol Last Admin: 06/26/17 17:06 Dose: 1 unit Ipratropium [place] (Atrovent) 0.5 mg IH RQ6 [facility] Last Admin: 06/26/17 13:38 Dose: 0.5 mg Metformin HCl (Glucophage) 500 mg PO BID [facility] Last Admin: 06/26/17 17:51 Dose: 500 mg Methylprednisolone (Solu-Medrol) 60 mg IV Q8 [facility] Last Admin: 06/26/17 14:01 Dose: 60 mg Oxycodone HCl (Oxycontin Extended Release Tab) 40 mg PO Q12 [facility] Pantoprazole Sodium (Protonix Inj) 40 mg IVP DAILY [facility] Last Admin: 06/26/17 09:11 Dose: 40 mg - Labs Labs: 06/26/17 07:05 06/26/17 07:05 PT 13.4 SECONDS (9.7-12.2) H 06/20/17 21:54 INR 1.2 06/20/17 21:54 APTT 27 SECONDS (21-34) 06/20/17 21:54
--- NOTE | 2017-06-26 20:07 | CP.PCM.PN ---
Subjective - Date & Time of Evaluation Date of Evaluation: 06/26/17 Time of Evaluation: 08:20 - Subjective Subjective: clinically same Objective - Vital Signs/Intake and Output Vital Signs (last 24 hours): Temp Pulse Resp BP Pulse Ox 98.6 F 124 H 20 154/93 H 96 06/26/17 07:22 06/26/17 07:22 06/26/17 07:22 06/26/17 07:22 06/26/17 07:22 Intake and Output: 06/26/17 06/27/17 18:59 06:59 Intake Total 350 Balance 350 - Medications Medications: Current Medications Enoxaparin Sodium (Lovenox) 40 mg SC DAILY [facility] Last Admin: 06/26/17 09:11 Dose: 40 mg Fentanyl (Duragesic) 1 patch TD Q72H [place] Glyburide (Micronase) 5 mg PO BID [facility] Last Admin: 06/26/17 17:51 Dose: 5 mg Hydromorphone HCl (Dilaudid) 4 mg IVP Q3H PRN PRN Reason: Pain, severe (8-10) Last Admin: 06/26/17 17:51 Dose: 4 mg Insulin Aspart (Novolog) 0 unit SC ACHS [facility] PRN Reason: Protocol Last Admin: 06/26/17 17:06 Dose: 1 unit Ipratropium [place] (Atrovent) 0.5 mg IH RQ6 [facility] Last Admin: 06/26/17 19:41 Dose: 0.5 mg Metformin HCl (Glucophage) 500 mg PO BID [facility] Last Admin: 06/26/17 17:51 Dose: 500 mg Methylprednisolone (Solu-Medrol) 60 mg IV Q8 [facility] Last Admin: 06/26/17 14:01 Dose: 60 mg Oxycodone HCl (Oxycontin Extended Release Tab) 40 mg PO Q12 [facility] Pantoprazole Sodium (Protonix Inj) 40 mg IVP DAILY [facility] Last Admin: 06/26/17 09:11 Dose: 40 mg - Labs Labs: 06/26/17 07:05 06/26/17 07:05 PT 13.4 SECONDS (9.7-12.2) H 06/20/17 21:54 INR 1.2 06/20/17 21:54 APTT 27 SECONDS (21-34) 06/20/17 21:54
[2017-06-26] MEDS: oxyCODONE 40 mg ER Tab (oxyCONTIN) PO SCH (21:26)
[2017-06-27] MEDS: Ipratropium 0.02% Inhal Soln (0.5 mg/2.5 ml) UD IH SCH ×4 (01:12→19:42)
--- NOTE | 2017-06-27 02:24 | CP.PCM.PN ---
Subjective - Date & Time of Evaluation Date of Evaluation: 06/26/17 Time of Evaluation: 16:00 - Subjective Subjective: Still has chest pain. Objective - Vital Signs/Intake and Output Vital Signs (last 24 hours): Temp Pulse Resp BP Pulse Ox 97.8 F 120 H 20 141/87 95 06/27/17 00:00 06/27/17 00:00 06/27/17 00:00 06/27/17 00:00 06/27/17 00:00 Intake and Output: 06/26/17 06/27/17 18:59 06:59 Intake Total 350 300 Balance 350 300 - Medications Medications: Current Medications Enoxaparin Sodium (Lovenox) 40 mg SC DAILY [facility] Last Admin: 06/26/17 09:11 Dose: 40 mg Fentanyl (Duragesic) 1 patch TD Q72H [facility] Glyburide (Micronase) 5 mg PO BID [facility] Last Admin: 06/26/17 17:51 Dose: 5 mg Hydromorphone HCl (Dilaudid) 4 mg IVP Q3H PRN PRN Reason: Pain, severe (8-10) Last Admin: 06/27/17 01:06 Dose: 4 mg Insulin Aspart (Novolog) 0 unit SC ACHS [facility] PRN Reason: Protocol Last Admin: 06/26/17 21:47 Dose: Not Given Ipratropium [place] (Atrovent) 0.5 mg IH RQ6 [facility] Last Admin: 06/27/17 01:12 Dose: 0.5 mg Metformin HCl (Glucophage) 500 mg PO BID [facility] Last Admin: 06/26/17 17:51 Dose: 500 mg Methylprednisolone (Solu-Medrol) 60 mg IV Q8 [facility] Last Admin: 06/26/17 21:25 Dose: 60 mg Oxycodone HCl (Oxycontin Extended Release Tab) 40 mg PO Q12 [facility] Last Admin: 06/26/17 21:26 Dose: 40 mg Pantoprazole Sodium (Protonix Inj) 40 mg IVP DAILY [facility] Last Admin: 06/26/17 09:11 Dose: 40 mg - Labs Labs: 06/26/17 07:05 06/26/17 07:05 PT 13.4 SECONDS (9.7-12.2) H 06/20/17 21:54 INR 1.2 06/20/17 21:54 APTT 27 SECONDS (21-34) 06/20/17 21:54 - Head Exam Head Exam: ATRAUMATIC - Eye Exam Eye Exam: Normal appearance - ENT Exam ENT Exam: Mucous Membranes Dry - Respiratory Exam Respiratory Exam: NORMAL BREATHING PATTERN - Cardiovascular Exam Cardiovascular Exam: +S1, +S2 - GI/Abdominal Exam GI & Abdominal Exam: Normal Bowel Sounds - Extremities Exam Extremities Exam: Normal Inspection Assessment and Plan (1) Pain of metastatic malignancy Assessment & Plan: will add long acting narcotic with dilaudid and fentanyl bowel regimen Status: Acute (2) Leukocytosis Assessment & Plan: improving secondary to recent Neulasta Status: Acute (3) Anemia Assessment & Plan: chronic disease recent chemotherapy Status: Acute (4) Lung cancer Assessment & Plan: stage IV s/p chemotherapy Status: Acute
[2017-06-27] MEDS: (Novolog) Insulin Aspart, Recombinant 100 u/ml 10 ml vial SC SCH ×4 (08:59→21:18)
[2017-06-27] MEDS: Enoxaparin 40 mg Syringe SC SCH (09:12)
[2017-06-27] MEDS: oxyCODONE 40 mg ER Tab (oxyCONTIN) PO SCH ×2 (09:19→21:59)
--- NOTE | 2017-06-27 14:13 | CP.PCM.PN ---
Subjective - Date & Time of Evaluation Date of Evaluation: 06/27/17 Time of Evaluation: 14:13 Objective - Vital Signs/Intake and Output Vital Signs (last 24 hours): Temp Pulse Resp BP Pulse Ox 97 F L 112 H 22 138/82 96 06/27/17 08:06 06/27/17 08:06 06/27/17 08:06 06/27/17 08:06 06/27/17 08:06 Intake and Output: 06/27/17 06/27/17 06:59 18:59 Intake Total 500 Balance 500 - Medications Medications: Current Medications Enoxaparin Sodium (Lovenox) 40 mg SC DAILY [facility] Last Admin: 06/27/17 09:12 Dose: 40 mg Fentanyl (Duragesic) 1 patch TD Q72H [facility] Last Admin: 06/27/17 09:20 Dose: 1 patch Glyburide (Micronase) 5 mg PO BID [facility] Last Admin: 06/27/17 09:13 Dose: 5 mg Hydromorphone HCl (Dilaudid) 4 mg IVP Q3H PRN PRN Reason: Pain, severe (8-10) Last Admin: 06/27/17 12:04 Dose: 4 mg Insulin Aspart (Novolog) 0 unit SC ACHS [facility] PRN Reason: Protocol Last Admin: 06/27/17 11:23 Dose: 4 unit Ipratropium [place] (Atrovent) 0.5 mg IH RQ6 [facility] Last Admin: 06/27/17 13:04 Dose: 0.5 mg Metformin HCl (Glucophage) 500 mg PO BID [facility] Last Admin: 06/27/17 09:13 Dose: 500 mg Methylprednisolone (Solu-Medrol) 60 mg IV Q8 [facility] Last Admin: 06/27/17 13:09 Dose: 60 mg Oxycodone HCl (Oxycontin Extended Release Tab) 40 mg PO Q12 [facility] Last Admin: 06/27/17 09:19 Dose: 40 mg Pantoprazole Sodium (Protonix Inj) 40 mg IVP DAILY [facility] Last Admin: 06/27/17 09:13 Dose: 40 mg - Labs Labs: 06/26/17 07:05 06/26/17 07:05 PT 13.4 SECONDS (9.7-12.2) H 06/20/17 21:54 INR 1.2 06/20/17 21:54 APTT 27 SECONDS (21-34) 06/20/17 21:54
--- NOTE | 2017-06-27 18:23 | CP.PCM.PN ---
Subjective - Date & Time of Evaluation Date of Evaluation: 06/27/17 Time of Evaluation: 07:40 - Subjective Subjective: clinically same Objective - Vital Signs/Intake and Output Vital Signs (last 24 hours): Temp Pulse Resp BP Pulse Ox 98.4 F 123 H 20 147/85 93 L 06/27/17 16:00 06/27/17 16:00 06/27/17 16:00 06/27/17 16:00 06/27/17 16:00 Intake and Output: 06/27/17 06/27/17 06:59 18:59 Intake Total 500 400 Balance 500 400 - Medications Medications: Current Medications Enoxaparin Sodium (Lovenox) 40 mg SC DAILY [facility] Last Admin: 06/27/17 09:12 Dose: 40 mg Fentanyl (Duragesic) 1 patch TD Q72H [facility] Last Admin: 06/27/17 09:20 Dose: 1 patch Glyburide (Micronase) 5 mg PO BID [facility] Last Admin: 06/27/17 17:37 Dose: 5 mg Hydromorphone HCl (Dilaudid) 4 mg IVP Q3H PRN PRN Reason: Pain, severe (8-10) Last Admin: 06/27/17 18:01 Dose: 4 mg Insulin Aspart (Novolog) 0 unit SC ACHS [facility] PRN Reason: Protocol Last Admin: 06/27/17 17:15 Dose: 1 unit Ipratropium [place] (Atrovent) 0.5 mg IH RQ6 [facility] Last Admin: 06/27/17 13:04 Dose: 0.5 mg Metformin HCl (Glucophage) 500 mg PO BID [facility] Last Admin: 06/27/17 17:37 Dose: 500 mg Methylprednisolone (Solu-Medrol) 60 mg IV Q8 [facility] Last Admin: 06/27/17 13:09 Dose: 60 mg Oxycodone HCl (Oxycontin Extended Release Tab) 40 mg PO Q12 [facility] Last Admin: 06/27/17 09:19 Dose: 40 mg Pantoprazole Sodium (Protonix Inj) 40 mg IVP DAILY [facility] Last Admin: 06/27/17 09:13 Dose: 40 mg - Labs Labs: 06/26/17 07:05 06/26/17 07:05 PT 13.4 SECONDS (9.7-12.2) H 06/20/17 21:54 INR 1.2 06/20/17 21:54 APTT 27 SECONDS (21-34) 06/20/17 21:54 - Constitutional Appears: Well - Head Exam Head Exam: ATRAUMATIC, NORMAL INSPECTION, NORMOCEPHALIC - Eye Exam Eye Exam: EOMI, Normal appearance, PERRL Pupil Exam: NORMAL ACCOMODATION, PERRL - ENT Exam ENT Exam: Mucous Membranes Moist, Normal Exam - Neck Exam Neck Exam: Full ROM, Normal Inspection. absent: Lymphadenopathy - Respiratory Exam Respiratory Exam: Decreased Breath Sounds - Cardiovascular Exam Cardiovascular Exam: REGULAR RHYTHM, +S1, +S2 - GI/Abdominal Exam GI & Abdominal Exam: Soft, Diminished Bowel Sounds - Rectal Exam Rectal Exam: Deferred
[2017-06-28 01:02] LABS: ABG ALLEN TEST POS; DRAW SITE LR
--- NOTE | 2017-06-28 01:11 | PCM.RRT ---
<Jo Rubio - Last Filed: 06/28/17 01:51> FINE GRADE OPERATOR Nurses Assessment - Situation FINE GRADE OPERATOR Responder Arrival Time: 12:25 FINE GRADE OPERATOR Reason for Call: Respiratory Distress, O2 Saturation below 90% FINE GRADE OPERATOR Called By: RN - Ventilator Settings SAO2 %: 93 - Constitutional Appears: In Acute Distress, Cachectic, Chronically Ill - Respiratory Exam Respiratory Exam: absent: Clear to Ausculation Bilateral, NORMAL BREATHING PATTERN - Cardiovascular Exam Cardiovascular Exam: Tachycardia, REGULAR RHYTHM Plan - Assessment of Findings&Treatment Plan 62 year old male with metastatic cancer nurse called rapid response due to respiratory distress. Patient was breathing rapidly HR 144; B/P 182/122 ; Glucose of 234;m oxygen saturation 83%; then it went up to 88% on 100% oxygen. Patient continued to be in respiratory distress on a oxygen mask. Chest x-ray showed increased interstitial infiltrates on the right side, severe atelectasis on the left; distended bowel on the abdominal area of x-ray. Patient requested not to be intubated or resuscitated as he stated he was in a lot of distress and he just wanted to not have any more pain. Patient's and son both agreed not to intubate the patient as he was in a lot of pain and they understood that his prognosis to be intubated and then off the ventilator was very poor. Nurse Iván Boggs and nurse Alina Fenton were both witness in addition to Dr. Khan and Dr. Rubio. Patient's and son both requested to give the patient more pain medication as the patient continued to be in distress. 5mg of Dilaudid was ordered and given. The family requested for the rest of the family to arrive to see their father. DNR/DNI papers were signed by the Luciana at 1:54am and requested only comfort care. <Caio Khan - Last Filed: 06/28/17 07:40> Attending/Attestation - Attestation I have personally seen and examined this patient.: Yes I have fully participated in the care of the patient.: Yes I have reviewed all pertinent clinical information, including history, physical exam and plan: Yes Notes (Text): Agreed with above.
[2017-06-28] MEDS: Ipratropium 0.02% Inhal Soln (0.5 mg/2.5 ml) UD IH SCH ×4 (01:52→20:46)
[2017-06-28] MEDS: (Novolog) Insulin Aspart, Recombinant 100 u/ml 10 ml vial SC SCH ×4 (07:45→22:06)
--- NOTE | 2017-06-28 08:38 | RAD ---
HISTORY: respiratory distress COMPARISON: Comparison is made to 06/20/2017 FINDINGS: LUNGS: Interval appearance of diffuse heterogeneous opacities at the right lung since the previous exam. Persistence focal opacity at the left lower lobe. PLEURA: Blunting of both costophrenic angle. CARDIOVASCULAR: Normal. OSSEOUS STRUCTURES: No significant abnormalities. VISUALIZED UPPER ABDOMEN: Distended stomach and bowel lobes at the upper abdomen. OTHER FINDINGS: None. IMPRESSION: Diffuse heterogeneous opacities at the right lung in new compared to the previous study. Distended stomach and bowel loops in the upper abdomen.
[2017-06-28] MEDS: oxyCODONE 40 mg ER Tab (oxyCONTIN) PO SCH ×2 (10:03→21:56)
[2017-06-28] MEDS: Enoxaparin 40 mg Syringe SC SCH (10:04)
--- NOTE | 2017-06-28 15:23 | CP.PCM.PN ---
Subjective - Date & Time of Evaluation Date of Evaluation: 06/28/17 Time of Evaluation: 07:20 - Subjective Subjective: clinically same Objective - Vital Signs/Intake and Output Vital Signs (last 24 hours): Temp Pulse Resp BP Pulse Ox 98.3 F 121 H 18 128/80 99 06/28/17 08:00 06/28/17 08:00 06/28/17 08:00 06/28/17 08:00 06/28/17 08:00 Intake and Output: 06/28/17 06/28/17 06:59 18:59 Intake Total 400 Balance 400 - Medications Medications: Current Medications Enoxaparin Sodium (Lovenox) 40 mg SC DAILY [facility] Last Admin: 06/28/17 10:04 Dose: 40 mg Fentanyl (Duragesic) 1 patch TD Q72H [facility] Last Admin: 06/27/17 09:20 Dose: 1 patch Glyburide (Micronase) 5 mg PO BID [facility] Last Admin: 06/28/17 12:01 Dose: 5 mg Hydromorphone HCl (Dilaudid) 5 mg IVP Q3H PRN PRN Reason: Pain, severe (8-10) Last Admin: 06/28/17 13:29 Dose: 5 mg Insulin Aspart (Novolog) 0 unit SC ACHS [facility] PRN Reason: Protocol Last Admin: 06/28/17 11:30 Dose: Not Given Ipratropium [place] (Atrovent) 0.5 mg IH RQ6 [facility] Last Admin: 06/28/17 13:42 Dose: Not Given Lorazepam (Ativan) 1 mg IVP Q1H PRN PRN Reason: Agitation Last Admin: 06/28/17 02:46 Dose: 1 mg Metformin HCl (Glucophage) 500 mg PO BID [facility] Last Admin: 06/28/17 12:01 Dose: 500 mg Methylprednisolone (Solu-Medrol) 60 mg IV Q8 [facility] Last Admin: 06/28/17 14:25 Dose: 60 mg Oxycodone HCl (Oxycontin Extended Release Tab) 40 mg PO Q12 [facility] Last Admin: 06/28/17 10:03 Dose: 40 mg Pantoprazole Sodium (Protonix Inj) 40 mg IVP DAILY [facility] Last Admin: 06/28/17 10:03 Dose: 40 mg - Labs Labs: 06/26/17 07:05 06/26/17 07:05 PT 13.4 SECONDS (9.7-12.2) H 06/20/17 21:54 INR 1.2 06/20/17 21:54 APTT 27 SECONDS (21-34) 06/20/17 21:54 - Constitutional Appears: Well - Head Exam Head Exam: ATRAUMATIC, NORMAL INSPECTION, NORMOCEPHALIC - Eye Exam Eye Exam: EOMI, Normal appearance, PERRL Pupil Exam: NORMAL ACCOMODATION, PERRL - ENT Exam ENT Exam: Mucous Membranes Moist, Normal Exam - Neck Exam Neck Exam: Full ROM, Normal Inspection. absent: Lymphadenopathy - Respiratory Exam Respiratory Exam: Decreased Breath Sounds - Cardiovascular Exam Cardiovascular Exam: REGULAR RHYTHM, +S1, +S2 - GI/Abdominal Exam GI & Abdominal Exam: Soft, Diminished Bowel Sounds - Rectal Exam Rectal Exam: Deferred
[2017-06-29] MEDS: Ipratropium 0.02% Inhal Soln (0.5 mg/2.5 ml) UD IH SCH ×4 (01:45→20:15)
[2017-06-29] MEDS: (Novolog) Insulin Aspart, Recombinant 100 u/ml 10 ml vial SC SCH ×4 (07:31→22:04)
[2017-06-29] MEDS: Enoxaparin 40 mg Syringe SC SCH (09:46)
[2017-06-29] MEDS: oxyCODONE 40 mg ER Tab (oxyCONTIN) PO SCH ×2 (09:46→21:55)
--- NOTE | 2017-06-29 17:38 | CP.PCM.PN ---
Objective - Vital Signs/Intake and Output Vital Signs (last 24 hours): Temp Pulse Resp BP Pulse Ox 97.9 F 118 H 24 127/89 100 06/29/17 15:00 06/29/17 15:00 06/29/17 15:00 06/29/17 15:00 06/29/17 15:00 Intake and Output: 06/29/17 06/29/17 06:59 18:59 Intake Total 350 100 Balance 350 100 - Medications Medications: Current Medications Enoxaparin Sodium (Lovenox) 40 mg SC DAILY [facility] Last Admin: 06/29/17 09:46 Dose: 40 mg Fentanyl (Duragesic) 1 patch TD Q72H [facility] Last Admin: 06/27/17 09:20 Dose: 1 patch Glyburide (Micronase) 5 mg PO BID [facility] Last Admin: 06/29/17 09:49 Dose: 5 mg Hydromorphone HCl (Dilaudid) 5 mg IVP Q3H PRN PRN Reason: Pain, severe (8-10) Last Admin: 06/29/17 14:19 Dose: 5 mg Insulin Aspart (Novolog) 0 unit SC ACHS [facility] PRN Reason: Protocol Last Admin: 06/29/17 11:54 Dose: Not Given Ipratropium [place] (Atrovent) 0.5 mg IH RQ6 [facility] Last Admin: 06/29/17 14:51 Dose: 0.5 mg Lorazepam (Ativan) 1 mg IVP Q1H PRN PRN Reason: Agitation Last Admin: 06/28/17 02:46 Dose: 1 mg Metformin HCl (Glucophage) 500 mg PO BID [facility] Last Admin: 06/29/17 09:46 Dose: 500 mg Methylprednisolone (Solu-Medrol) 60 mg IV Q8 [facility] Last Admin: 06/29/17 13:59 Dose: 60 mg Oxycodone HCl (Oxycontin Extended Release Tab) 40 mg PO Q12 [facility] Last Admin: 06/29/17 09:46 Dose: 40 mg Pantoprazole Sodium (Protonix Inj) 40 mg IVP DAILY [facility] Last Admin: 06/29/17 09:47 Dose: 40 mg - Labs Labs: 06/26/17 07:05 06/26/17 07:05 PT 13.4 SECONDS (9.7-12.2) H 06/20/17 21:54 INR 1.2 06/20/17 21:54 APTT 27 SECONDS (21-34) 06/20/17 21:54
--- NOTE | 2017-06-29 19:40 | CP.PCM.PN ---
Subjective - Date & Time of Evaluation Date of Evaluation: 06/29/17 Time of Evaluation: 08:10 - Subjective Subjective: clinically same Objective - Vital Signs/Intake and Output Vital Signs (last 24 hours): Temp Pulse Resp BP Pulse Ox 97.9 F 118 H 24 127/89 100 06/29/17 15:00 06/29/17 15:00 06/29/17 15:00 06/29/17 15:00 06/29/17 15:00 Intake and Output: 06/29/17 06/30/17 18:59 06:59 Intake Total 100 Balance 100 - Medications Medications: Current Medications Enoxaparin Sodium (Lovenox) 40 mg SC DAILY [facility] Last Admin: 06/29/17 09:46 Dose: 40 mg Fentanyl (Duragesic) 1 patch TD Q72H [facility] Last Admin: 06/27/17 09:20 Dose: 1 patch Glyburide (Micronase) 5 mg PO BID [facility] Last Admin: 06/29/17 18:48 Dose: 5 mg Hydromorphone HCl (Dilaudid) 5 mg IVP Q3H PRN PRN Reason: Pain, severe (8-10) Last Admin: 06/29/17 14:19 Dose: 5 mg Insulin Aspart (Novolog) 0 unit SC ACHS [facility] PRN Reason: Protocol Last Admin: 06/29/17 18:51 Dose: Not Given Ipratropium [place] (Atrovent) 0.5 mg IH RQ6 [facility] Last Admin: 06/29/17 14:51 Dose: 0.5 mg Lorazepam (Ativan) 1 mg IVP Q1H PRN PRN Reason: Agitation Last Admin: 06/28/17 02:46 Dose: 1 mg Metformin HCl (Glucophage) 500 mg PO BID [facility] Last Admin: 06/29/17 18:48 Dose: 500 mg Methylprednisolone (Solu-Medrol) 60 mg IV Q8 [facility] Last Admin: 06/29/17 13:59 Dose: 60 mg Oxycodone HCl (Oxycontin Extended Release Tab) 40 mg PO Q12 [facility] Last Admin: 06/29/17 09:46 Dose: 40 mg Pantoprazole Sodium (Protonix Inj) 40 mg IVP DAILY [facility] Last Admin: 06/29/17 09:47 Dose: 40 mg - Labs Labs: 06/26/17 07:05 06/26/17 07:05 PT 13.4 SECONDS (9.7-12.2) H 06/20/17 21:54 INR 1.2 06/20/17 21:54 APTT 27 SECONDS (21-34) 06/20/17 21:54 - Constitutional Appears: Well - Head Exam Head Exam: ATRAUMATIC, NORMAL INSPECTION, NORMOCEPHALIC - Eye Exam Eye Exam: EOMI, Normal appearance, PERRL - ENT Exam ENT Exam: Mucous Membranes Moist, Normal Exam - Neck Exam Neck Exam: Full ROM, Normal Inspection. absent: Lymphadenopathy - Respiratory Exam Respiratory Exam: Decreased Breath Sounds - Cardiovascular Exam Cardiovascular Exam: REGULAR RHYTHM, +S1, +S2. absent: Murmur - GI/Abdominal Exam GI & Abdominal Exam: Diminished Bowel Sounds - Rectal Exam Rectal Exam: Deferred Assessment and Plan (1) Anemia Status: Acute (2) Chest discomfort Status: Acute (3) Constipation Status: Acute (4) Dehydration Status: Acute (5) Leukocytosis Status: Acute (6) Lung cancer Status: Acute (7) Pain of metastatic malignancy Status: Acute (8) Pneumonia Status: Acute
--- NOTE | 2017-06-30 00:50 | CP.PCM.PN ---
Subjective - Date & Time of Evaluation Date of Evaluation: 06/27/17 Time of Evaluation: 13:15 - Subjective Subjective: Has pain. Objective - Vital Signs/Intake and Output Vital Signs (last 24 hours): Temp Pulse Resp BP Pulse Ox 97.9 F 118 H 24 127/89 100 06/29/17 15:00 06/29/17 15:00 06/29/17 15:00 06/29/17 15:00 06/29/17 15:00 Intake and Output: 06/29/17 06/30/17 18:59 06:59 Intake Total 100 300 Balance 100 300 - Medications Medications: Current Medications Enoxaparin Sodium (Lovenox) 40 mg SC DAILY [facility] Last Admin: 06/29/17 09:46 Dose: 40 mg Fentanyl (Duragesic) 1 patch TD Q72H [facility] Last Admin: 06/27/17 09:20 Dose: 1 patch Glyburide (Micronase) 5 mg PO BID [facility] Last Admin: 06/29/17 18:48 Dose: 5 mg Hydromorphone HCl (Dilaudid) 5 mg IVP Q3H PRN PRN Reason: Pain, severe (8-10) Last Admin: 06/30/17 00:00 Dose: 5 mg Insulin Aspart (Novolog) 0 unit SC ACHS [facility] PRN Reason: Protocol Last Admin: 06/29/17 22:04 Dose: Not Given Ipratropium [place] (Atrovent) 0.5 mg IH RQ6 [facility] Last Admin: 06/29/17 20:15 Dose: 0.5 mg Lorazepam (Ativan) 1 mg IVP Q1H PRN PRN Reason: Agitation Last Admin: 06/29/17 22:29 Dose: 1 mg Metformin HCl (Glucophage) 500 mg PO BID [facility] Last Admin: 06/29/17 18:48 Dose: 500 mg Methylprednisolone (Solu-Medrol) 60 mg IV Q8 [facility] Last Admin: 06/29/17 22:03 Dose: 60 mg Oxycodone HCl (Oxycontin Extended Release Tab) 40 mg PO Q12 [facility] Last Admin: 06/29/17 21:55 Dose: 40 mg Pantoprazole Sodium (Protonix Inj) 40 mg IVP DAILY [facility] Last Admin: 06/29/17 09:47 Dose: 40 mg - Labs Labs: 06/26/17 07:05 06/26/17 07:05 PT 13.4 SECONDS (9.7-12.2) H 06/20/17 21:54 INR 1.2 06/20/17 21:54 APTT 27 SECONDS (21-34) 06/20/17 21:54 - Head Exam Head Exam: ATRAUMATIC - Eye Exam Eye Exam: Normal appearance - ENT Exam ENT Exam: Mucous Membranes Dry - Respiratory Exam Respiratory Exam: Decreased Breath Sounds - Cardiovascular Exam Cardiovascular Exam: +S1, +S2 - GI/Abdominal Exam GI & Abdominal Exam: Normal Bowel Sounds - Extremities Exam Extremities Exam: Normal Inspection Assessment and Plan (1) Pain of metastatic malignancy Assessment & Plan: on narcotics and bowel regimen Status: Acute (2) Leukocytosis Assessment & Plan: secondary to Neulasta Status: Acute (3) Anemia Assessment & Plan: anemia of chemotherapy anemia of chronic disease Status: Acute (4) Lung cancer Assessment & Plan: s/p chemotherapy Status: Acute
--- NOTE | 2017-06-30 00:54 | CP.PCM.PN ---
Subjective - Date & Time of Evaluation Date of Evaluation: 06/28/17 Time of Evaluation: 18:00 - Subjective Subjective: Has pain at bedside Objective - Vital Signs/Intake and Output Vital Signs (last 24 hours): Temp Pulse Resp BP Pulse Ox 97.9 F 118 H 24 127/89 100 06/29/17 15:00 06/29/17 15:00 06/29/17 15:00 06/29/17 15:00 06/29/17 15:00 Intake and Output: 06/29/17 06/30/17 18:59 06:59 Intake Total 100 300 Balance 100 300 - Medications Medications: Current Medications Enoxaparin Sodium (Lovenox) 40 mg SC DAILY [facility] Last Admin: 06/29/17 09:46 Dose: 40 mg Fentanyl (Duragesic) 1 patch TD Q72H [facility] Last Admin: 06/27/17 09:20 Dose: 1 patch Glyburide (Micronase) 5 mg PO BID [facility] Last Admin: 06/29/17 18:48 Dose: 5 mg Hydromorphone HCl (Dilaudid) 5 mg IVP Q3H PRN PRN Reason: Pain, severe (8-10) Last Admin: 06/30/17 00:00 Dose: 5 mg Insulin Aspart (Novolog) 0 unit SC ACHS [facility] PRN Reason: Protocol Last Admin: 06/29/17 22:04 Dose: Not Given Ipratropium [place] (Atrovent) 0.5 mg IH RQ6 [facility] Last Admin: 06/29/17 20:15 Dose: 0.5 mg Lorazepam (Ativan) 1 mg IVP Q1H PRN PRN Reason: Agitation Last Admin: 06/29/17 22:29 Dose: 1 mg Metformin HCl (Glucophage) 500 mg PO BID [facility] Last Admin: 06/29/17 18:48 Dose: 500 mg Methylprednisolone (Solu-Medrol) 60 mg IV Q8 [facility] Last Admin: 06/29/17 22:03 Dose: 60 mg Oxycodone HCl (Oxycontin Extended Release Tab) 40 mg PO Q12 [facility] Last Admin: 06/29/17 21:55 Dose: 40 mg Pantoprazole Sodium (Protonix Inj) 40 mg IVP DAILY [facility] Last Admin: 06/29/17 09:47 Dose: 40 mg - Labs Labs: 06/26/17 07:05 06/26/17 07:05 PT 13.4 SECONDS (9.7-12.2) H 06/20/17 21:54 INR 1.2 06/20/17 21:54 APTT 27 SECONDS (21-34) 06/20/17 21:54 - Head Exam Head Exam: ATRAUMATIC - Eye Exam Eye Exam: Normal appearance - ENT Exam ENT Exam: Mucous Membranes Dry - Respiratory Exam Respiratory Exam: NORMAL BREATHING PATTERN - Cardiovascular Exam Cardiovascular Exam: +S1, +S2 - Extremities Exam Extremities Exam: Normal Inspection Assessment and Plan (1) Pain of metastatic malignancy Assessment & Plan: narcotic pain meds, bowel regimen Status: Acute (2) Leukocytosis Assessment & Plan: secondary to Neulasta Status: Acute (3) Anemia Assessment & Plan: anemia of chemotherapy anemia of chronic disease Status: Acute (4) Lung cancer Assessment & Plan: s/p chemotherapy. Status: Acute
[2017-06-30] MEDS: Ipratropium 0.02% Inhal Soln (0.5 mg/2.5 ml) UD IH SCH ×4 (02:32→20:29)
[2017-06-30] MEDS: (Novolog) Insulin Aspart, Recombinant 100 u/ml 10 ml vial SC SCH ×4 (08:29→21:37)
[2017-06-30] MEDS: oxyCODONE 40 mg ER Tab (oxyCONTIN) PO SCH ×2 (10:43→21:33)
[2017-06-30] MEDS: Enoxaparin 40 mg Syringe SC SCH (10:43)
--- NOTE | 2017-06-30 16:32 | CP.PCM.PN ---
Subjective - Date & Time of Evaluation Date of Evaluation: 06/30/17 Objective - Vital Signs/Intake and Output Vital Signs (last 24 hours): Temp Pulse Resp BP Pulse Ox 97 F L 70 19 106/76 95 06/30/17 08:50 06/30/17 08:50 06/30/17 08:50 06/30/17 08:50 06/30/17 08:50 Intake and Output: 06/30/17 06/30/17 06:59 18:59 Intake Total 360 Balance 360 - Medications Medications: Current Medications Enoxaparin Sodium (Lovenox) 40 mg SC DAILY [facility] Last Admin: 06/30/17 10:43 Dose: 40 mg Fentanyl (Duragesic) 1 patch TD Q72H [facility] Last Admin: 06/30/17 10:44 Dose: 1 patch Glyburide (Micronase) 5 mg PO BID [facility] Last Admin: 06/30/17 10:43 Dose: 5 mg Hydromorphone HCl (Dilaudid) 5 mg IVP Q3H PRN PRN Reason: Pain, severe (8-10) Last Admin: 06/30/17 13:35 Dose: 5 mg Insulin Aspart (Novolog) 0 unit SC ACHS [facility] PRN Reason: Protocol Last Admin: 06/30/17 12:00 Dose: 2 unit Ipratropium [place] (Atrovent) 0.5 mg IH RQ6 [facility] Last Admin: 06/30/17 13:56 Dose: 0.5 mg Lorazepam (Ativan) 1 mg IVP Q1H PRN PRN Reason: Agitation Last Admin: 06/29/17 22:29 Dose: 1 mg Metformin HCl (Glucophage) 500 mg PO BID [facility] Last Admin: 06/30/17 10:42 Dose: 500 mg Methylprednisolone (Solu-Medrol) 60 mg IV Q8 [facility] Last Admin: 06/30/17 13:33 Dose: 60 mg Oxycodone HCl (Oxycontin Extended Release Tab) 40 mg PO Q12 [facility] Last Admin: 06/30/17 10:43 Dose: 40 mg Pantoprazole Sodium (Protonix Inj) 40 mg IVP DAILY [facility] Last Admin: 06/30/17 10:42 Dose: 40 mg - Labs Labs: 06/26/17 07:05 06/26/17 07:05 PT 13.4 SECONDS (9.7-12.2) H 06/20/17 21:54 INR 1.2 06/20/17 21:54 APTT 27 SECONDS (21-34) 06/20/17 21:54
--- NOTE | 2017-06-30 17:17 | CP.PCM.PN ---
Subjective - Date & Time of Evaluation Date of Evaluation: 06/30/17 Time of Evaluation: 07:20 - Subjective Subjective: clinically same Objective - Vital Signs/Intake and Output Vital Signs (last 24 hours): Temp Pulse Resp BP Pulse Ox 97 F L 70 19 106/76 95 06/30/17 08:50 06/30/17 08:50 06/30/17 08:50 06/30/17 08:50 06/30/17 08:50 Intake and Output: 06/30/17 06/30/17 06:59 18:59 Intake Total 360 Balance 360 - Medications Medications: Current Medications Enoxaparin Sodium (Lovenox) 40 mg SC DAILY [facility] Last Admin: 06/30/17 10:43 Dose: 40 mg Fentanyl (Duragesic) 1 patch TD Q72H [facility] Last Admin: 06/30/17 10:44 Dose: 1 patch Glyburide (Micronase) 5 mg PO BID [facility] Last Admin: 06/30/17 10:43 Dose: 5 mg Hydromorphone HCl (Dilaudid) 5 mg IVP Q3H PRN PRN Reason: Pain, severe (8-10) Last Admin: 06/30/17 16:50 Dose: 5 mg Insulin Aspart (Novolog) 0 unit SC ACHS [facility] PRN Reason: Protocol Last Admin: 06/30/17 12:00 Dose: 2 unit Ipratropium [place] (Atrovent) 0.5 mg IH RQ6 [facility] Last Admin: 06/30/17 13:56 Dose: 0.5 mg Lorazepam (Ativan) 1 mg IVP Q1H PRN PRN Reason: Agitation Last Admin: 06/29/17 22:29 Dose: 1 mg Metformin HCl (Glucophage) 500 mg PO BID [facility] Last Admin: 06/30/17 10:42 Dose: 500 mg Methylprednisolone (Solu-Medrol) 60 mg IV Q8 [facility] Last Admin: 06/30/17 13:33 Dose: 60 mg Oxycodone HCl (Oxycontin Extended Release Tab) 40 mg PO Q12 [facility] Last Admin: 06/30/17 10:43 Dose: 40 mg Pantoprazole Sodium (Protonix Inj) 40 mg IVP DAILY [facility] Last Admin: 06/30/17 10:42 Dose: 40 mg - Labs Labs: 06/26/17 07:05 06/26/17 07:05 PT 13.4 SECONDS (9.7-12.2) H 06/20/17 21:54 INR 1.2 06/20/17 21:54 APTT 27 SECONDS (21-34) 06/20/17 21:54 - Constitutional Appears: Well - Head Exam Head Exam: ATRAUMATIC, NORMAL INSPECTION, NORMOCEPHALIC - Eye Exam Eye Exam: EOMI, Normal appearance, PERRL Pupil Exam: NORMAL ACCOMODATION, PERRL - ENT Exam ENT Exam: Mucous Membranes Moist, Normal Exam - Neck Exam Neck Exam: Full ROM, Normal Inspection. absent: Lymphadenopathy - Respiratory Exam Respiratory Exam: Decreased Breath Sounds - Cardiovascular Exam Cardiovascular Exam: REGULAR RHYTHM, +S1, +S2 - GI/Abdominal Exam GI & Abdominal Exam: Soft, Diminished Bowel Sounds - Rectal Exam Rectal Exam: Deferred Assessment and Plan (1) Anemia Status: Acute (2) Chest discomfort Status: Acute (3) Constipation Status: Acute (4) Dehydration Status: Acute (5) Leukocytosis Status: Acute (6) Lung cancer Status: Acute (7) Pain of metastatic malignancy Status: Acute (8) Pneumonia Status: Acute
[2017-06-30 17:24] VITALS: TEMP 98
[2017-07-01] MEDS: Ipratropium 0.02% Inhal Soln (0.5 mg/2.5 ml) UD IH SCH ×4 (01:04→19:27)
[2017-07-01 01:05] VITALS: BP 129/79; PULSE 118; RESP 22; O2SAT 93
[2017-07-01] MEDS: (Novolog) Insulin Aspart, Recombinant 100 u/ml 10 ml vial SC SCH ×4 (08:14→21:53)
[2017-07-01] MEDS: oxyCODONE 40 mg ER Tab (oxyCONTIN) PO SCH ×2 (10:24→21:27)
[2017-07-01] MEDS: Enoxaparin 40 mg Syringe SC SCH (10:24)
--- NOTE | 2017-07-01 20:32 | CP.PCM.PN ---
Subjective - Date & Time of Evaluation Date of Evaluation: 07/01/17 Time of Evaluation: 07:20 - Subjective Subjective: clinically same Objective - Vital Signs/Intake and Output Vital Signs (last 24 hours): Temp Pulse Resp BP Pulse Ox 98 F 118 H 22 129/79 93 L 07/01/17 00:00 07/01/17 00:00 07/01/17 00:00 07/01/17 00:00 07/01/17 00:00 Intake and Output: 07/01/17 07/02/17 18:59 06:59 Intake Total 250 Balance 250 - Medications Medications: Current Medications Enoxaparin Sodium (Lovenox) 40 mg SC DAILY [facility] Last Admin: 07/01/17 10:24 Dose: 40 mg Fentanyl (Duragesic) 1 patch TD Q72H [facility] Last Admin: 06/30/17 10:44 Dose: 1 patch Glyburide (Micronase) 5 mg PO BID [facility] Last Admin: 07/01/17 17:42 Dose: 5 mg Hydromorphone HCl (Dilaudid) 5 mg IVP Q3H PRN PRN Reason: Pain, severe (8-10) Last Admin: 07/01/17 17:42 Dose: 5 mg Insulin Aspart (Novolog) 0 unit SC ACHS [facility] PRN Reason: Protocol Last Admin: 07/01/17 17:41 Dose: 4 unit Ipratropium [place] (Atrovent) 0.5 mg IH RQ6 [facility] Last Admin: 07/01/17 19:27 Dose: 0.5 mg Lorazepam (Ativan) 1 mg IVP Q1H PRN PRN Reason: Agitation Last Admin: 06/29/17 22:29 Dose: 1 mg Metformin HCl (Glucophage) 500 mg PO BID [facility] Last Admin: 07/01/17 17:42 Dose: 500 mg Methylprednisolone (Solu-Medrol) 60 mg IV Q8 [facility] Last Admin: 07/01/17 14:02 Dose: 60 mg Oxycodone HCl (Oxycontin Extended Release Tab) 40 mg PO Q12 [facility] Last Admin: 07/01/17 10:24 Dose: 40 mg Pantoprazole Sodium (Protonix Inj) 40 mg IVP DAILY [facility] Last Admin: 07/01/17 10:25 Dose: 40 mg - Labs Labs: 06/26/17 07:05 06/26/17 07:05 PT 13.4 SECONDS (9.7-12.2) H 06/20/17 21:54 INR 1.2 06/20/17 21:54 APTT 27 SECONDS (21-34) 06/20/17 21:54 - Constitutional Appears: Well - Head Exam Head Exam: ATRAUMATIC, NORMAL INSPECTION, NORMOCEPHALIC - Eye Exam Eye Exam: EOMI, Normal appearance, PERRL Pupil Exam: NORMAL ACCOMODATION, PERRL - ENT Exam ENT Exam: Mucous Membranes Moist, Normal Exam - Neck Exam Neck Exam: Full ROM, Normal Inspection. absent: Lymphadenopathy - Respiratory Exam Respiratory Exam: Decreased Breath Sounds - Cardiovascular Exam Cardiovascular Exam: REGULAR RHYTHM, +S1, +S2 - GI/Abdominal Exam GI & Abdominal Exam: Soft, Diminished Bowel Sounds - Rectal Exam Rectal Exam: Deferred Assessment and Plan (1) Anemia Status: Acute (2) Chest discomfort Status: Acute (3) Constipation Status: Acute (4) Dehydration Status: Acute (5) Leukocytosis Status: Acute (6) Lung cancer Status: Acute (7) Pain of metastatic malignancy Status: Acute (8) Pneumonia Status: Acute
--- NOTE | 2017-07-01 23:21 | CP.PCM.PRO ---
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 [id number]
== END 2017-07-02 01:44 | DRG 541 ==
LOC: C.ER 21:27 → C.3T 06-21 00:53 → C.9E 06-21 00:53 → C.3T 06-21 15:47
PROVIDERS: ADMIT Internal Medicine Nephrology; ATTEND Internal Medicine Nephrology
DX: C34.92 Malignant neoplasm of unspecified part of left bronchus or lung (principal); J18.9 Pneumonia, unspecified organism; E87.0 Hyperosmolality and hypernatremia; C79.51 Secondary malignant neoplasm of bone; E86.0 Dehydration; D64.81 Anemia due to antineoplastic chemotherapy; E11.9 Type 2 diabetes mellitus without complications; G89.3 Neoplasm related pain (acute) (chronic); K59.00 Constipation, unspecified; Z79.4 Long term (current) use of insulin; Z87.891 Personal history of nicotine dependence; T45.1X5A Adverse effect of antineoplastic and immunosuppressive drugs, initial encounter; D63.8 Anemia in other chronic diseases classified elsewhere